=== PATIENT | female | born 1940 | race Caucasian/White ===

== ENCOUNTER 2016-12-16 05:23 | Observation (INO) | payer MEDICARE, OTHER ==
[2016-12-16] MEDS ORDERED: SODIUM CHLORIDE 0.9% 1,000 ML IV STA (05:31)
[2016-12-16 05:46] LABS: Basophils % (A) 1 %; CH 22.4; CHCM 30.3; Eosinophils # (A) 0.4 k/uL (0-0.7); Eosinophils % (A) 5 %; HCT 31.3 % (34.0-46.0); HDW 2.78; HGB 9.9 gm/dL (11.4-16.0); Hypochromasia Marked; Luc # (Auto) 0.17; Luc % (Auto) 2; Lymphocytes # (A) 1.4 k/uL (1.0-4.8); Lymphocytes % (A) 19 %; MCH 23.4 pg (25.0-35.0); MCHC 31.5 g/dL (31.0-37.0); MCV 74.3 fL (80.0-100.0); Mean Platelet Volume 7.8; Microcytosis Slight; Monocytes # (A) 0.4 k/uL (0-1.0); Monocytes % (A) 5 %; Neutrophils # (A) 5.1 k/uL (1.3-7.7); Neutrophils % (A) 68 %; RBC 4.22 m/uL (3.80-5.40); RDW 15.6 % (11.5-15.5); WBC 7.5 k/uL (3.8-10.6); WBC (Perox) 7.52
[2016-12-16 05:55] LABS: ALT 29 U/L (9-52); AST 14 U/L (14-36); Alkaline Phosphatase 78 U/L (38-126); Anion Gap 8 mmol/L; Blood Urea Nitrogen 13 mg/dL (7-17); Calcium 8.9 mg/dL (8.4-10.2); Carbon Dioxide 24 mmol/L (22-30); Chloride 106 mmol/L (98-107); Glucose 144 mg/dL (74-99); Magnesium 2.1 mg/dL (1.6-2.3); Non-African American GFR(MDRD) >60 (>60 ml/min/1.73 sqM); Partial Thromboplastin Time 22.7 sec (22.0-30.0); Potassium 4.2 mmol/L (3.5-5.1); Sodium 138 mmol/L (137-145); Total Bilirubin 0.2 mg/dL (0.2-1.3); Total Protein 5.6 g/dL (6.3-8.2)
[2016-12-16] MEDS ORDERED: NITROGLYCERIN SL TABS 0.4 MG TAB SUBLINGUAL PRN (06:05)
[2016-12-16] MEDS ORDERED: ASPIRIN 81 MG CHEW PO STA (06:05)
[2016-12-16 06:07] LABS: Creatine Kinase 64 U/L (30-135)
--- NOTE | 2016-12-16 06:11 | ED ---
General Adult HPI - General Chief complaint: Chest Pain Stated complaint: Chest Pain Time Seen by Provider: 12/16/16 05:31 Source: EMS, RN notes reviewed, old records reviewed Mode of arrival: EMS Limitations: no limitations - History of Present Illness Initial comments: This is a 68-year-old female ER chest pain. Chest pain shortness of breath, feeling of fullness in her chest and neck. Patient also complaining of cough. And just generally not feeling well. She states increased fatigue over the last day and a half. Decreased appetite. No significant medical history aside for mild Parkinson's, takes no medications at this time. No history of heart disease. Patient denies fever. No travel history no sick contacts. Patient continues a chest pain fatigue at this time - Related Data Home Medications Medication Instructions Recorded Confirmed Aspirin 81 mg PO DAILY 11/12/13 12/16/16 Primidone [Mysoline] 50 mg PO DAILY 11/12/13 12/16/16 Previous Rx's Medication Instructions Recorded Nitroglycerin Sl Tabs [Nitrostat] 0.4 mg SUBLINGUAL Q5M PRN #20 tab 12/17/16 amLODIPine [Norvasc] 5 mg PO DAILY #30 tab 12/17/16 Allergies Allergy/AdvReac Type Severity Reaction Status Date / Time Penicillins Allergy Rash/Hives Verified 12/16/16 08:20 Review of Systems ROS Statement: Those systems with pertinent positive or pertinent negative responses have been documented in the HPI. ROS Other: All systems not noted in ROS Statement are negative. Past Medical History Past Medical History: Osteoarthritis (OA) Additional Past Medical History / Comment(s): parkinsons History of Any Multi-Drug Resistant Organisms: None Reported Past Surgical History: No Surgical Hx Reported Past Psychological History: Anxiety Smoking Status: Never smoker Past Alcohol Use History: None Reported Past Drug Use History: None Reported - Past Family History Mother Additional Family Medical History / Comment(s): pt states her mother needed a new heart, from a "bad" heart. Father was an alchoholic-per pt. Sister has heart problems and alzhiemers General Exam Limitations: no limitations General appearance: alert, in no apparent distress Head exam: Present: atraumatic, normocephalic, normal inspection Eye exam: Present: normal appearance, PERRL, EOMI. Absent: scleral icterus, conjunctival injection, periorbital swelling ENT exam: Present: normal exam, mucous membranes moist Neck exam: Present: normal inspection. Absent: tenderness, meningismus, lymphadenopathy Respiratory exam: Present: normal lung sounds bilaterally. Absent: respiratory distress, wheezes, rales, rhonchi, stridor Cardiovascular Exam: Present: regular rate, normal rhythm, normal heart sounds. Absent: systolic murmur, diastolic murmur, rubs, gallop, clicks GI/Abdominal exam: Present: soft, normal bowel sounds. Absent: distended, tenderness, guarding, rebound, rigid Extremities exam: Present: normal inspection, full ROM, normal capillary refill. Absent: tenderness, pedal edema, joint swelling, calf tenderness Back exam: Present: normal inspection Neurological exam: Present: alert, oriented X3, CN II-XII intact Psychiatric exam: Present: normal affect, normal mood Skin exam: Present: warm, dry, intact, normal color. Absent: rash Course Vital Signs 12/16/16 12/16/16 05:25 06:50 Temperature 98.4 F Pulse Rate 89 64 Respiratory 18 16 Rate Blood Pressure 169/80 149/68 O2 Sat by Pulse 100 100 Oximetry - Reevaluation(s) Reevaluation #1: 12/16/16 06:10 Patient remains unchanged EKG Findings - EKG Comments: EKG Findings:: EKG shows normal sinus rhythm rate of 75, NM 160, QRS 86, QTC 417. Repeat. EKG shows normal sinus rhythm rate of 65, NM 144, QRS 86, QTC 409 Medical Decision Making - Medical Decision Making 76 female in the ER for evaluation of chest pain, history of chest pain. Patient's poor strain, patient be admitted for cardiac observation - Lab Data Result diagrams: 12/17/16 06:42 12/17/16 06:42 Lab Results 12/16/16 12/16/16 12/16/16 Range/Units 05:30 05:30 05:30 WBC 7.5 (3.8-10.6) k/uL RBC 4.22 (3.80-5.40) m/uL Hgb 9.9 L (11.4-16.0) gm/dL Hct 31.3 L (34.0-46.0) % MCV 74.3 L (80.0-100.0) fL MCH 23.4 L (25.0-35.0) pg MCHC 31.5 (31.0-37.0) g/dL RDW 15.6 H (11.5-15.5) % Plt Count 278 (150-450) k/uL Neutrophils % 68 % Lymphocytes % 19 % Monocytes % 5 % Eosinophils % 5 % Basophils % 1 % Neutrophils # 5.1 (1.3-7.7) k/uL Lymphocytes # 1.4 (1.0-4.8) k/uL Monocytes # 0.4 (0-1.0) k/uL Eosinophils # 0.4 (0-0.7) k/uL Basophils # 0.0 (0-0.2) k/uL Hypochromasia Marked Microcytosis Slight PT (9.0-12.0) sec INR (<1.1) APTT (22.0-30.0) sec Sodium 138 (137-145) mmol/L Potassium 4.2 (3.5-5.1) mmol/L Chloride 106 (98-107) mmol/L Carbon Dioxide 24 (22-30) mmol/L Anion Gap 8 mmol/L BUN 13 (7-17) mg/dL Creatinine 0.50 L (0.52-1.04) mg/dL Est GFR (MDRD) Af Amer >60 (>60 ml/min/1.73 sqM) Est GFR (MDRD) Non-Af >60 (>60 ml/min/1.73 sqM) Glucose 144 H (74-99) mg/dL Calcium 8.9 (8.4-10.2) mg/dL Magnesium 2.1 (1.6-2.3) mg/dL Total Bilirubin 0.2 (0.2-1.3) mg/dL AST 14 (14-36) U/L ALT 29 (9-52) U/L Alkaline Phosphatase 78 (38-126) U/L Total Creatine Kinase 64 (30-135) U/L CK-MB (CK-2) 1.0 (0.0-2.4) ng/mL CK-MB (CK-2) Rel Index 1.6 Troponin I <0.012 (0.000-0.034) ng/mL Total Protein 5.6 L (6.3-8.2) g/dL Albumin 3.4 L (3.5-5.0) g/dL Lipase 112 (23-300) U/L 12/16/16 Range/Units 05:30 WBC (3.8-10.6) k/uL RBC (3.80-5.40) m/uL Hgb (11.4-16.0) gm/dL Hct (34.0-46.0) % MCV (80.0-100.0) fL MCH (25.0-35.0) pg MCHC (31.0-37.0) g/dL RDW (11.5-15.5) % Plt Count (150-450) k/uL Neutrophils % % Lymphocytes % % Monocytes % % Eosinophils % % Basophils % % Neutrophils # (1.3-7.7) k/uL Lymphocytes # (1.0-4.8) k/uL Monocytes # (0-1.0) k/uL Eosinophils # (0-0.7) k/uL Basophils # (0-0.2) k/uL Hypochromasia Microcytosis PT 10.0 (9.0-12.0) sec INR 1.0 (<1.1) APTT 22.7 (22.0-30.0) sec Sodium (137-145) mmol/L Potassium (3.5-5.1) mmol/L Chloride (98-107) mmol/L Carbon Dioxide (22-30) mmol/L Anion Gap mmol/L BUN (7-17) mg/dL Creatinine (0.52-1.04) mg/dL Est GFR (MDRD) Af Amer (>60 ml/min/1.73 sqM) Est GFR (MDRD) Non-Af (>60 ml/min/1.73 sqM) Glucose (74-99) mg/dL Calcium (8.4-10.2) mg/dL Magnesium (1.6-2.3) mg/dL Total Bilirubin (0.2-1.3) mg/dL AST (14-36) U/L ALT (9-52) U/L Alkaline Phosphatase (38-126) U/L Total Creatine Kinase (30-135) U/L CK-MB (CK-2) (0.0-2.4) ng/mL CK-MB (CK-2) Rel Index Troponin I (0.000-0.034) ng/mL Total Protein (6.3-8.2) g/dL Albumin (3.5-5.0) g/dL Lipase (23-300) U/L - Radiology Data Radiology results: report reviewed (Chest x-ray is negative for acute disease), image reviewed Critical Care Time Critical Care Time: Yes Total Critical Care Time: 31 Disposition Clinical Impression: Chest pain Disposition: ADMITTED IP TO THIS [facility] Condition: Stable
[2016-12-16 06:20] LABS: Troponin I <0.012 ng/mL (0.000-0.034)
--- NOTE | 2016-12-16 06:20 | XR ---
EXAM: XR Chest, 2 Views CLINICAL HISTORY: Chest Pain TECHNIQUE: Frontal and lateral views of the chest. COMPARISON: No relevant prior studies available. FINDINGS: Lungs: Unremarkable. No consolidation. Pleural space: Unremarkable. No pneumothorax. Heart: Unremarkable. No cardiomegaly. Mediastinum: Unremarkable. Bones/joints: Unremarkable. IMPRESSION: No acute findings
[2016-12-16] MEDS: IPRATROPIUM-ALBUTEROL 3 ML NEB INHALATION SCH ×3 (11:28→19:58)
[2016-12-16 12:15] LABS: Creatine Kinase 57 U/L (30-135)
[2016-12-16 12:28] LABS: Creatine Kinase MB 0.8 ng/mL (0.0-2.4); Troponin I <0.012 ng/mL (0.000-0.034)
--- NOTE | 2016-12-16 16:03 | P.HPIM ---
History of Present Illness H&P Date: 12/16/16 Chief Complaint: Chest pain This is a 76-year-old patient of Dr. Ho. Not the best of historians as she keeps drifting off.. Chronic stable medical conditions include Parkinson's disease, osteoarthritis,. Patient presents with episodes of anterior chest wall pain associated with dizziness, increased blood pressure, some shortness of breath, episodes of perspiration perspiration, lasting very variable durations including up to 20 minutes. Denies any prior cardiac history. Admitted with unstable angina. Normally uses a walker to get around the house. Review of Systems GEN.: tired EYES: None HEENT: Decreased hearing NECK: None RESPIRATORY: As above CARDIOVASCULAR: As above GASTROINTESTINAL: None GENITOURINARY: None MUSCULOSKELETAL: Pain in different joints including the feet LYMPHATICS: None HEMATOLOGICAL: None PSYCHIATRY: Somewhat anxious NEUROLOGICAL: Uses a walker Past Medical History Past Medical History: Osteoarthritis (OA) Additional Past Medical History / Comment(s): parkinsons History of Any Multi-Drug Resistant Organisms: None Reported Past Surgical History: No Surgical Hx Reported Smoking Status: Never smoker Additional History: Lives alone. Uses a walker - Past Family History Mother Additional Family Medical History / Comment(s): pt states her mother needed a new heart, from a "bad" heart. Father was an alchoholic-per pt. Sister has heart problems and alzhiemers Medications and Allergies Home Medications Medication Instructions Recorded Confirmed Type Aspirin 81 mg PO DAILY 11/12/13 12/16/16 History Primidone [Mysoline] 50 mg PO DAILY 11/12/13 12/16/16 History Allergies Allergy/AdvReac Type Severity Reaction Status Date / Time Penicillins Allergy Rash/Hives Verified 12/16/16 08:20 Physical Exam VITAL SIGNS: Upon presentation temperature 98.4, pulse 89, respiration 18, pressure 169/80, also 100% on 2 L GENERAL: Average built, laying in bed, comfortable. EYES: Pupils equal. Conjunctiva normal. HEENT: External appearance of nose and ears normal, oral cavity grossly normal decreased hearing. NECK: JVD not raised; masses not palpable. HEART: First and second heart sounds are normal; no edema. LUNGS: Respiratory rate normal; clear to auscultation. ABDOMEN: Soft, nontender, liver spleen not palpable, no masses palpable. LYMPHATICS: No lymph nodes palpable in the axilla and neck. PSYCH: Alert and oriented x3; mood and affect normal. NEUROLOGICAL: Cranial nerves grossly intact; no facial asymmetry, power and sensation grossly intact. Somewhat restless and fidgety Results CBC & Chem 7: 12/16/16 05:30 12/16/16 05:30 Labs: White count 7.5, hemoglobin 9.9, potassium 4.2, troponin I 2 negative EKG-nonspecific changes Thrombosis Risk Factor Assmnt - Choose All That Apply Any of the Below Risk Factors Present?: No Assessment and Plan Plan: Assessment: -Possible unstable angina in a patient who is 76 years of age also history of hypertension but states she's been out of her medications -Parkinson's disease idiopathic, mild -Bilateral primary osteoarthritis especially of the the feet Plan: Serial cardiac enzymes are ordered. Cardiology was consulted. They are considering the stress test. Care was discussed with the patient. Patient's started on put on aspirin.
[2016-12-16 18:17] LABS: Creatine Kinase MB 0.8 ng/mL (0.0-2.4); Troponin I 0.015 ng/mL (0.000-0.034)
[2016-12-16] MEDS: PRIMIDONE 50 MG TAB PO SCH (21:52)
[2016-12-16] MEDS: ASPIRIN 81 MG CHEW PO SCH (21:52)
[2016-12-17] MEDS ORDERED: IPRATROPIUM-ALBUTEROL 3 ML NEB ONE (00:22)
[2016-12-17 04:21] VITALS: RESP 16
[2016-12-17] MEDS: IPRATROPIUM-ALBUTEROL 3 ML NEB INHALATION SCH ×5 (05:13→12:31)
[2016-12-17] MEDS ORDERED: DOBUTamine DRIP for NUC MED 500 MG in DEXTROSE/WATER 1 250ML.BAG IV ONE (06:00)
[2016-12-17 07:27] LABS: CH 21.8; HCT 27.9 % (34.0-46.0); HDW 2.68; HGB 8.5 gm/dL (11.4-16.0); Hypochromasia Marked; MCH 23.2 pg (25.0-35.0); MCHC 30.7 g/dL (31.0-37.0); MCV 75.5 fL (80.0-100.0); Mean Platelet Volume 7.5; Microcytosis Slight; RBC 3.69 m/uL (3.80-5.40); RDW 15.4 % (11.5-15.5); WBC 7.2 k/uL (3.8-10.6)
[2016-12-17 08:02] LABS: Anion Gap 7 mmol/L; Blood Urea Nitrogen 10 mg/dL (7-17); Calcium 8.1 mg/dL (8.4-10.2); Carbon Dioxide 22 mmol/L (22-30); Chloride 107 mmol/L (98-107); Cholesterol 132 mg/dL (<200); Glucose 108 mg/dL (74-99); HDL Cholesterol 54 mg/dL (40-60); Non-African American GFR(MDRD) >60 (>60 ml/min/1.73 sqM); Sodium 136 mmol/L (137-145); Triglycerides 44 mg/dL (<150)
[2016-12-17] MEDS ORDERED: ASPIRIN 81 MG CHEW PO SCH (09:00)
[2016-12-17] MEDS ORDERED: ASPIRIN 325 MG TAB PO SCH (09:00)
--- NOTE | 2016-12-17 10:30 | ECHOF ---
Referral Reason: MEASUREMENTS -------- HEIGHT: 162.6 cm WEIGHT: 65.3 kg BP: 114/20 RVIDd: 2.6 cm (< 3.3) IVSd: 1.2 cm (0.6 - 1.1) LVIDd: 3.7 cm (3.9 - 5.3) LVPWd: 1.2 cm (0.6 - 1.1) IVSs: 1.5 cm LVIDs: 2.7 cm LVPWs: 1.4 cm LA Diam: 3.4 cm (2.7 - 3.8) LAESV Index (A-L): 46.76 ml/m Ao Diam: 3.4 cm (2.0 - 3.7) AV Cusp: 2.3 cm (1.5 - 2.6) LA Diam: 4.4 cm (2.7 - 3.8) MV EXCURSION: 22.213 mm (> 18.000) MV EF SLOPE: 77 mm/s (70 - 150) EPSS: 0.6 cm MV E Tyshawn: 0.72 m/s MV DecT: 217 ms MV A Tyshawn: 1.00 m/s MV E/A Ratio: 0.72 RAP: 5.00 mmHg RVSP: 34.57 mmHg FINDINGS -------- Sinus rhythm. This was a technically adequate study. The left ventricular size is normal. There is mild concentric left ventricular hypertrophy. Overall left ventricular systolic function is normal with, an EF between 55 - 60 %. The right ventricle is normal in size. LA is severely dilated >40 ml/m2 The right atrial size is normal. There is mild aortic valve sclerosis. There is no evidence of aortic regurgitation. Mild mitral annular calcification present. Mild mitral regurgitation is present. Eelo-nf-xofypsrg tricuspid regurgitation present. There is no evidence of pulmonary hypertension. The right ventricular systolic pressure, as measured by Doppler, is 34.57mmHg. The pulmonic valve was not well visualized. There is no pulmonic regurgitation present. The aortic root size is normal. There is no pericardial effusion. CONCLUSIONS -------- 1. This was a technically adequate study. 2. The aortic root size is normal. 3. There is no pericardial effusion. 4. There is mild concentric left ventricular hypertrophy. 5. LA is severely dilated >40 ml/m2 6. There is mild aortic valve sclerosis. 7. Mild mitral annular calcification present. 8. Mild mitral regurgitation is present. 9. Lazl-ik-yapjmjew tricuspid regurgitation present. 10. There is no evidence of pulmonary hypertension. 11. There is no pulmonic regurgitation present. DAIRY EQUIPMENT REPAIRER: Abiola Childress RDCS
[2016-12-17 11:26] VITALS: BP 145/56; PULSE 84; TEMP 98.2
--- NOTE | 2016-12-17 11:55 | P.STRESS ---
- Stress Test Note Stress Test Results/Findings: Exam Performed: dobutamine stress echo Exam Date: 12/17/16 Height: 5 ft 4 in Weight: 65.5 kg Protocol: Shekhar Stage: IV Duration of Exercise: 10 Resting Heart Rate: 78 Resting Blood Pressure: 218/60 Maximum Achieved Heart Rate: 125 Maximum Achieved Blood Pressure: 210/62 85% PMHR: 88 100% PMHR: 142 METS: 0 Technologist Comment: Stress Test Results/Findings: Baseline EKG revealed sinus mechanism with normal axis and intervals. Patient received an infusion of dobutamine per protocol. EKG monitoring revealed no evidence of ST segment changes. Baseline echocardiogram revealed normal wall thickening and motion and at peak exercise there was normal wall motion augmentations with no hypokinesis or dyskinesis. Impression: 1. Normal EKG response to dobutamine infusion. 2. Normal stress echocardiogram with no evidence of stress induced ischemia.
[2016-12-17 11:56] VITALS: BMI 24.7
[2016-12-17] MEDS: PRIMIDONE 50 MG TAB PO SCH (12:10)
[2016-12-17] MEDS: ASPIRIN 81 MG CHEW PO SCH (12:10)
--- NOTE | 2016-12-17 15:15 | CONS ---
Attending: Dr. Ho. Mrs. Owens is a 76 year old female with no prior documented history of coronary artery disease who presented with symptoms of chest discomfort and dizziness. According to her, she has been having chest discomfort, worse with coughing. She also complained of dizziness and not feeling well. She denies any prior cardiac history. She has no documented history of syncope in the past but she felt dizzy and felt according to her like swimming. She has no peripheral edema. No clear PND. She sleeps on three pillows. Her coronary risk factors are negative for smoking. She is nondiabetic. No documented hyperlipidemia. According to her, she has high blood pressure at times. Her medications at home included: 1. Mysoline. 2. Aspirin. REVIEW OF SYSTEMS: She has a cough. She has some dyspnea on exertion. No history of obstructive lung disease. She has history of asthma. GI system: No recent GI bleeding or peptic ulcer disease. system: No dysuria or hematuria. Nervous system: No stroke or seizures. PHYSICAL EXAMINATION: Alert, in no apparent distress. Blood pressure 149/60 with a heart rate in the 60s, head normocephalic, eyes sclerae nonicteric. Neck good carotid upstroke. No bruit. No jugular venous distention. Lungs clear to auscultation. Heart regular rate and rhythm, S1, S2. No S3 with reproducible discomfort in the chest by palpation. Abdomen soft, nontender. Positive bowel sounds. No organomegaly. Extremities no edema. Intact distal pulses. Lab data revealed blood sugar 114, BUN and creatinine 13 and 0.5 Troponin less than 0.012. Hemoglobin 9.9. EKG revealed a sinus mechanism with a normal axis and intervals with suggestion of left ventricular hypertrophy. Chest x-ray reveals no infiltrate. IMPRESSION: 1. Chest discomfort, atypical for ischemic heart disease. No evidence for acute coronary syndrome. Has apparent musculoskeletal etiology. 2. Cough with no clear evidence to suggest pneumonia. 3. Anemia, of unknown duration or unknown etiology. RECOMMENDATIONS: From the cardiac standpoint, I will obtain echocardiogram and Doppler. We will schedule to undergo dobutamine stress echocardiogram. We will repeat her lab data. Depending on her progress, further recommendations will be made. Thank you for this consultation. REHANA
--- NOTE | 2016-12-17 19:21 | P.DS ---
<Lulu Kim - Last Filed: 12/17/16 19:06> Providers Date of admission: 12/16/16 06:06 Expected date of discharge: 12/17/16 Attending physician: Shady Díaz Consults: 12/16/16 06:06 Consult Physician Urgent Consulting Provider: Barrett Liu Consult Reason/Comments: cp Do you want consulting provider notified?: Yes Primary care physician: [facility] Hospital Course: FINAL DIAGNOSES: -Unstable angina -Hypertension -Parkinson's disease, idiopathic, mild -Bilateral primary osteoarthritis, especially of the feet. HOSPTIAL COURSE: This is a 76-year-old patient who presented to the emergency department with episodes of anterior chest wall pain associated with dizziness increasing blood pressure and some shortness of breath, episodes of perspiration lasting variable durations up to 20 minutes. No prior cardiac history, was admitted with unstable angina. Cardiology was consulted, lab work was drawn ECG was performed. Patient went for stress test today and EKG response to dobutamine infusion was normal as was normal stress echo no evidence of inducible ischemia. Patient's tolerating her diet ambulatory with a walker, which is her baseline, and would therefore like to go home. PHYSICAL EXAM: CARDIOVASCULAR: First and second sounds noted, no edema, no chest pain, palpitations or sweating, nausea or vomiting. RESPIRATORY: Respiratory rate normal: Clear to auscultation. MUSKULOSKELETAL: Osteoarthritis notable to bilateral feet, patient uses a walker at baseline. NEUROLOGIC:: Mild restlessness and fidgeting noted, mild tremoring the left hand. Patient was seen and examined by nurse practitioner Lulu Kim in all elements of the case discussed with attending Dr. Díaz DISOPSITION: Will be discharged home to the care of her family Pertinent Studies: STRESS TEST: Normal EKG response to dobutamine infusion, normal stress echocardiogram with no evidence of stress-induced ischemia. Patient Condition at Discharge: Stable Plan - Discharge Summary New Discharge Prescriptions: New Nitroglycerin Sl Tabs [Nitrostat] 0.4 mg SUBLINGUAL Q5M PRN #20 tab PRN Reason: Chest Pain amLODIPine [Norvasc] 5 mg PO DAILY #30 tab Continue Primidone [Mysoline] 50 mg PO DAILY Aspirin 81 mg PO DAILY Discharge Medication List Aspirin 81 mg PO DAILY 11/12/13 [History] Primidone [Mysoline] 50 mg PO DAILY 11/12/13 [History] Nitroglycerin Sl Tabs [Nitrostat] 0.4 mg SUBLINGUAL Q5M PRN #20 tab 12/17/16 [Rx ] amLODIPine [Norvasc] 5 mg PO DAILY #30 tab 12/17/16 [Rx] Follow up Appointment(s)/Referral(s): Serjio Killian MD [STAFF PHYSICIAN] - 10 Days Robert Ho DO [Primary Care Provider] - 1-2 days Patient Instructions/Handouts: Chest Pain (ED) Discharge Disposition: HOME SELF-CARE <Shady Díaz - Last Filed: 12/18/16 17:54> Hospital Course: Attending note. Date of service-12/17/2016 This patient was seen and examined by me . I reviewed the note of my nurse practitioner, Ms. Kim. Discussed with her, additional findings as below. Patient admitted with chest pain. Troponins were negative. On examination: Lungs-clear to auscultation, cardiovascular first seconds are normal Investigations: 2-D echo showed preserved LV function. Stress test was negative Assessment and plan: Possible unstable angina with a negative stress test Norvasc was added both for blood pressure control and for possible angina. care was discussed with the patient
== END 2016-12-17 17:16 | disposition home or self-care (01) ==
LOC: EC 05:23 → 3OBS 06:06
PROVIDERS: ADMIT Hospitalist; ATTEND Hospitalist
DX: I20.0 Unstable angina (principal); G20 Parkinson's disease; I10 Essential (primary) hypertension; M19.072 Primary osteoarthritis, left ankle and foot; M19.071 Primary osteoarthritis, right ankle and foot; F41.9 Anxiety disorder, unspecified; D64.9 Anemia, unspecified; Z79.899 Other long term (current) drug therapy; Z79.82 Long term (current) use of aspirin; Z88.0 Allergy status to penicillin; Z82.49 Family history of ischemic heart disease and other diseases of the circulatory system
CPT/HCPCS: 99291 ×2; 93005 ×2; 36415; 94640 ×4; 94760; 93017; 93306; 93350; 80061; 80053; 80048; 82550; 82553; 83690; 83735; 84484; 85025; 85027; 85610; 85730; 71020; G0378 ×2; J1250

== ENCOUNTER 2020-03-09 16:19 | Inpatient (IN) | payer MEDICARE, OTHER ==
--- NOTE | 2020-03-09 17:00 | ED ---
Weakness HPI - General Chief complaint: Weakness Stated complaint: draft roller picker order Time Seen by Provider: 03/09/20 16:26 Source: EMS, RN notes reviewed, old records reviewed Mode of arrival: EMS Limitations: altered mental status - History of Present Illness Initial comments: This is a 79-year-old female poor historian history obtained from EMS and danica quintero'nicolasa prior charting, patient pickup order secondary to unkempt and unfit living conditions MD Complaint: generalized weakness, lack of energy, difficulty walking -: days(s) Location: generalized Severity: moderate Severity scale (1-10): 4 Consistency: constant Improves with: none Worsens with: none Context: recent illness Associated Symptoms: confusion, loss of appetite, nausea/vomiting - Related Data Home Medications Medication Instructions Recorded Confirmed Aspirin 81 mg PO DAILY 11/12/13 12/16/16 Primidone [Mysoline] 50 mg PO DAILY 11/12/13 12/16/16 Previous Rx's Medication Instructions Recorded Nitroglycerin Sl Tabs [Nitrostat] 0.4 mg SUBLINGUAL Q5M PRN #20 tab 12/17/16 amLODIPine [Norvasc] 5 mg PO DAILY #30 tab 12/17/16 Allergies Allergy/AdvReac Type Severity Reaction Status Date / Time Penicillins Allergy Rash/Hives Verified 03/09/20 16:42 Review of Systems ROS Statement: Those systems with pertinent positive or pertinent negative responses have been documented in the HPI. ROS Other: All systems not noted in ROS Statement are negative. Past Medical History Past Medical History: Osteoarthritis (OA) Additional Past Medical History / Comment(s): parkinsons History of Any Multi-Drug Resistant Organisms: None Reported Past Surgical History: No Surgical Hx Reported Past Psychological History: Anxiety Smoking Status: Never smoker Past Alcohol Use History: None Reported Past Drug Use History: None Reported - Past Family History Mother Additional Family Medical History / Comment(s): pt states her mother needed a new heart, from a "bad" heart. Father was an alchoholic-per pt. Sister has heart problems and alzhiemers General Exam Limitations: altered mental status Course Vital Signs 03/09/20 03/09/20 03/09/20 16:30 17:42 18:00 Temperature 99.0 F Pulse Rate 129 H 128 H 128 H Respiratory 30 H 18 18 Rate Blood Pressure 142/94 124/88 124/88 O2 Sat by Pulse 98 100 100 Oximetry - Reevaluation(s) Reevaluation #1: 03/09/20 18:39 Medical record is reviewed Reevaluation #2: 03/09/20 18:39 No significant change in patient's symptoms EKG Findings - EKG Comments: EKG Findings:: EKG shows sinus tachycardia 127 TX 122 QRS 82 QTC 453 Medical Decision Making - Medical Decision Making 79 female DF for evaluation of altered mental status and weakness. Patient will admit for admission of all the above - Lab Data Result diagrams: 03/09/20 17:25 Lab Results 03/09/20 03/09/20 Range/Units 17:25 17:25 Sodium 147 H (137-145) mmol/L Potassium 4.0 (3.5-5.1) mmol/L Chloride 114 H (98-107) mmol/L Carbon Dioxide 21 L (22-30) mmol/L Anion Gap 12 mmol/L BUN 45 H (7-17) mg/dL Creatinine 0.96 (0.52-1.04) mg/dL Est GFR (CKD-EPI)AfAm 64 (>60 ml/min/1.73 sqM) Est GFR (CKD-EPI)NonAf 56 (>60 ml/min/1.73 sqM) Glucose 146 H (74-99) mg/dL Calcium 7.9 L (8.4-10.2) mg/dL Phosphorus 5.3 H (2.5-4.5) mg/dL Magnesium 2.8 H (1.6-2.3) mg/dL Ammonia 45 H (<30) umol/L Salicylates <1.0 mg/dL Acetaminophen <10.0 ug/mL Serum Alcohol <10 mg/dL - Radiology Data Radiology results: report reviewed (X-ray abdominal series and chest is negative for acute disease), image reviewed Disposition Clinical Impression: Hypernatremia, Dehydration Disposition: ADMITTED IP TO THIS HOSP Condition: Fair Is patient prescribed a controlled substance at d/c from ED?: No Referrals: None,Stated [Primary Care Provider] - 1-2 days
[2020-03-09 18:00] LABS: Acetaminophen <10.0 ug/mL; African American GFR (CKD) 64 (>60 ml/min/1.73 sqM); Alcohol <10 mg/dL; Anion Gap 12 mmol/L; Blood Urea Nitrogen 45 mg/dL (7-17); Calcium 7.9 mg/dL (8.4-10.2); Carbon Dioxide 21 mmol/L (22-30); Chloride 114 mmol/L (98-107); Glucose 146 mg/dL (74-99); Magnesium 2.8 mg/dL (1.6-2.3); Non-African American GFR(CKD) 56 (>60 ml/min/1.73 sqM); Phosphorus 5.3 mg/dL (2.5-4.5); Salicylate <1.0 mg/dL; Sodium 147 mmol/L (137-145)
[2020-03-09] MEDS ORDERED: cefTRIAXone IN SWFI 1,000 MG/10 ML SYRINGE IVP STA (18:16)
[2020-03-09] MEDS ORDERED: SODIUM CHLORIDE 0.9% 500 ML 500 ML IV STA (18:41)
[2020-03-09] MEDS ORDERED: SODIUM CHLORIDE 0.9% 1,000 ML IV STA ×2 (18:41→20:59)
[2020-03-09] MEDS ORDERED: SODIUM CHLORIDE 0.9% 2,000 ML IV STA (18:41)
[2020-03-09 18:49] LABS: Anisocytosis Moderate; Basophils # (A) 0.1 k/uL (0-0.2); Basophils % (A) 0 %; Eosinophils % (A) 0 %; HCT 39.9 % (34.0-46.0); HGB 11.3 gm/dL (11.4-16.0); Hypochromasia Marked; Lymphocytes # (A) 1.5 k/uL (1.0-4.8); Lymphocytes % (A) 9 %; MCH 19.9 pg (25.0-35.0); MCHC 28.4 g/dL (31.0-37.0); MCV 70.1 fL (80.0-100.0); Mean Platelet Volume 8.3; Microcytosis Marked; Monocytes # (A) 0.9 k/uL (0-1.0); Monocytes % (A) 6 %; Neutrophils # (A) 13.2 k/uL (1.3-7.7); Neutrophils % (A) 83 %; Platelet Count 380 k/uL (150-450); RDW 20.1 % (11.5-15.5)
[2020-03-09 19:41] LABS: Amphetamine Screen,Urine Not Detected (NotDetected); Barbiturate Screen,Urine Not Detected (NotDetected); Benzodiazepines Screen,Urine Not Detected (NotDetected); Cocaine Screen,Urine Not Detected (NotDetected); Methadone Screen, Urine Not Detected (NotDetected); Opiate Screen,Urine Not Detected (NotDetected); Oxycodone Screen, Urine Not Detected (NotDetected); Phencyclidine Screen,Urine Not Detected (NotDetected); Tricyclic Antidepressant,Urine Not Detected (NotDetected); Urn Cannabinoid Scrn Not Detected (NotDetected)
[2020-03-09 19:55] LABS: Valproic Acid (Depakene) <10.0 ug/mL
--- NOTE | 2020-03-09 20:24 | XR ---
EXAMINATION TYPE: XR abdomen acute w cxr DATE OF EXAM: 03/09/2020 COMPARISON: NONE HISTORY: Weakness TECHNIQUE: 3 views FINDINGS: There is no heart failure nor confluent pneumonic infiltrate. There are no hilar masses. Th oracic aorta is atheromatous. There are chest leads. There are dilated multiple small bowel loops with air and fluid throughout the abdomen. There is no e vidence of free air. There is only small amount of large bowel gas seen. IMPRESSION: No active cardiopulmonary disease. Dilated small bowel suggestive of severe ileus or distal mechanical small bowel obstruction.
[2020-03-09] MEDS ORDERED: DEXTROSE 5%-0.45% NACL 1,000 ML IV ONE (20:59)
[2020-03-09] MEDS ORDERED: SODIUM CHLORIDE 0.9% 500 ML 500 ML IV ONE (21:42)
[2020-03-10] MEDS: DEXTROSE 5% IN WATER 1,000 ML IV SCH ×5 (08:30→19:15)
[2020-03-10 09:15] LABS: ABG Base Excess -5.2 mmol/L; ABG HCO3 18 mmol/L (21-25); ABG Oxygen Saturation 99.5 % (94-97); ABG PCO2 24 mmHg (35-45); ABG PH 7.49 (7.35-7.45); ABG PO2 170 mmHg (83-108); ABG TCO2 19 mmol/L (19-24); Allen Test Performed? Yes
[2020-03-10 09:50] LABS: Glucose,Whole Blood 257 mg/dL (75-99)
--- NOTE | 2020-03-10 09:54 | P.CNPUL ---
History of Present Illness Consult date: 03/10/20 Requesting physician: Shari Young Reason for consult: other (Critical care management) Chief complaint: Abdominal pain, weakness History of present illness: This is an 79-year-old female patient with a history of Parkinson's disease and osteoarthritis. She is currently on no known home medications. He was brought into the emergency room yesterday by EMS with altered mental status. She is a poor historian and not much history could be taken from the patient. EMS reported on An unfit living conditions. She was having complaints of abdominal pain. Abdominal x-ray did reveal dilated small bowel suggestive of severe ileus or distal mechanical small bowel obstruction. Chest x-ray revealed no acute pulmonary process. EKG revealed sinus tachycardia with no significant ST or T wave abnormalities. White count 16.0. Hemoglobin 11.3. Sodium 147. Potassium 4.0. Chloride 114. Bicarb 21. Creatinine 0.96. Urine drug screen negative. Ammonia level 45. She was given 4 L of fluid resuscitation in the emergency room along with 1 g of IV Rocephin. She was admitted to the regular medical floor. This morning and A team was called as the patient was quite obtunded, hypotensive and tachycardic. She was transferred to the intensive care unit and seen upon arrival. She is moaning in pain. Abdomen is significantly distended and tender. Blood pressure 80/56. Tachycardic at 120. Requiring 6 L high flow nasal cannula to maintain O2 saturations in the 90s. Her blood gases revealed a PaO2 of 170, pCO2 24, pH 7.49. On 100% FiO2. She is receiving another liter of normal saline. This is changed to D5W. Review of Systems ROS unobtainable: due to mental status Past Medical History Past Medical History: Osteoarthritis (OA) Additional Past Medical History / Comment(s): parkinsons History of Any Multi-Drug Resistant Organisms: None Reported Past Surgical History: No Surgical Hx Reported Past Anesthesia/Blood Transfusion Reactions: No Reported Reaction Past Psychological History: Anxiety Smoking Status: Never smoker Past Alcohol Use History: None Reported Past Drug Use History: None Reported - Past Family History Mother Additional Family Medical History / Comment(s): pt states her mother needed a new heart, from a "bad" heart. Father was an alchoholic-per pt. Sister has heart problems and alzhiemers Medications and Allergies Home Medications Medication Instructions Recorded Confirmed Type No Known Home Medications 03/09/20 03/09/20 History Allergies Allergy/AdvReac Type Severity Reaction Status Date / Time Penicillins Allergy Rash/Hives Verified 03/09/20 18:56 Physical Exam Vitals: Vital Signs Temp Pulse Pulse Resp BP BP Pulse Ox 03/10/20 07:00 97.6 F 120 H 20 80/56 03/09/20 22:40 99.2 F 105 H 18 127/76 96 03/09/20 22:30 97.9 F 109 H 147/79 94 L 03/09/20 21:45 108 H 16 120/70 99 03/09/20 21:00 105 H 14 03/09/20 19:01 122 H 18 114/82 100 03/09/20 18:00 128 H 18 124/88 100 03/09/20 17:42 128 H 18 124/88 100 03/09/20 16:30 99.0 F 129 H 30 H 142/94 98 Intake and Output 03/09/20 03/10/20 03/10/20 22:59 06:59 14:59 Output Total 150 Balance -150 Output: Urine 150 Straight 150 Other: Voiding Method Diaper Incontinent # Voids 1 # Emeses 2 Weight 40.823 kg GENERAL EXAM: Obtunded, on 6 L high flow nasal cannula, frail, cachectic 79-year-old female patient. HEAD: Normocephalic. EYES: Normal reaction of pupils, equal size. NOSE: Clear with pink turbinates. THROAT: No erythema or exudates. NECK: No masses, no JVD. CHEST: No chest wall deformity. LUNGS: Equal air entry with no crackles, wheeze, rhonchi or dullness. CVS: S1 and S2 normal with no audible murmur, regular rhythm. Tachycardic. ABDOMEN: Significantly distended and tender, hypoactive bowel sounds positive guarding. SPINE: No scoliosis or deformity SKIN: No rashes CENTRAL NERVOUS SYSTEM: No focal deficits, tone is normal in all 4 extremities. EXTREMITIES: There is no peripheral edema. No clubbing, no cyanosis. Peripheral pulses are intact. Results - Laboratory Findings CBC and BMP: 03/09/20 18:22 03/09/20 17:25 Abnormal lab findings: Abnormal Labs 03/09/20 03/09/20 03/09/20 17:25 17:25 18:22 WBC 16.0 H RBC 5.70 H Hgb 11.3 L MCV 70.1 L MCH 19.9 L MCHC 28.4 L RDW 20.1 H Neutrophils # 13.2 H Sodium 147 H Chloride 114 H Carbon Dioxide 21 L BUN 45 H Glucose 146 H Calcium 7.9 L Phosphorus 5.3 H Magnesium 2.8 H Ammonia 45 H - Diagnostic Findings Chest x-ray: image reviewed (No acute pulmonary process) Additional studies: Abdominal x-ray revealed dilated small bowel suggestive of severe ileus or distal mechanical small bowel obstruction Assessment and Plan Assessment: 1 Altered mental status of unclear etiology 2 Abdominal pain secondary to severe ileus or possible distal small bowel mechanical obstruction 3 Leukocytosis secondary to above 4 Acute hypoxemic respiratory failure secondary to above 5 History of Parkinson's disease 6 Osteoarthritis Plan: The patient was seen and evaluated by Dr. Garcia Chest x-ray, abdominal x-ray, labs and ABGs reviewed Insert nasogastric tube Insert Garcia catheter Obtain surgical consultation Change IVs to D5.45 at 80 MLS per hour Titrate down the FiO2 as tolerated Overall condition is guarded We will continue to follow and make further recommendations based on her cl inical status I, the cosigning physician, performed a history & physical examination of the patient. Lungs sounds are clear. Maintaining good O2 saturations in the 90s on 6 L high flow nasal cannula. I discussed the assessment and plan of care with my nurse practitioner, Priya Bustamante. I attest to the above consultation as dictated by her. Time with Patient: Greater than 30
[2020-03-10] MEDS ORDERED: DEXTROSE 5% IN WATER 1,000 ML IV ONE (10:00)
[2020-03-10] MEDS: SODIUM CHLORIDE 0.9% 1,000 ML IV SCH ×2 (10:24→10:27)
[2020-03-10] MEDS ORDERED: LEVOFLOXACIN 500MG-D5W PMX 500 MG in DEXTROSE/WATER 1 100ML.BAG IVPB ONE (10:30)
[2020-03-10 10:35] VITALS: BMI 15.4
--- NOTE | 2020-03-10 10:39 | XR ---
EXAMINATION TYPE: XR chest 1V DATE OF EXAM: 03/10/2020 COMPARISON: 12/16/2016 HISTORY: NG tube placement TECHNIQUE: Single frontal view of the chest is obtained. FINDINGS: NG tube is seen with the tip in the left upper quadrant likely within the gastric fundus. Numerous dilated small bowel loops are seen in the abdomen. Hyperinflation of the lungs. Diffuse oste openia. Heart size normal. No pneumothorax. No overt failure. No sizable consolidation. IMPRESSION: 1. COPD. NG tube appears in the left upper quadrant with numerous dilated small bowel loops suggestiv e of bowel obstruction.
[2020-03-10 11:23] LABS: Anisocytosis Moderate; HCT 37.6 % (34.0-46.0); HGB 10.4 gm/dL (11.4-16.0); Hypochromasia Marked; MCHC 27.7 g/dL (31.0-37.0); MCV 72.1 fL (80.0-100.0); Mean Platelet Volume 9.2; Microcytosis Marked; Platelet Count 387 k/uL (150-450); RBC 5.21 m/uL (3.80-5.40); RDW 20.1 % (11.5-15.5); WBC 2.8 k/uL (3.8-10.6)
[2020-03-10 11:51] LABS: Albumin 1.8 g/dL (3.5-5.0); Calcium 6.5 mg/dL (8.4-10.2); Potassium 3.6 mmol/L (3.5-5.1); Total Bilirubin 0.8 mg/dL (0.2-1.3); Total Protein 3.6 g/dL (6.3-8.2)
--- NOTE | 2020-03-10 12:10 | CT ---
EXAMINATION TYPE: CT abdomen pelvis wo con DATE OF EXAM: 03/10/2020 COMPARISON: None INDICATION: Abdominal pain; small bowel obstruction on x-ray DLP: 385.1 mGycm, Automated exposure control for dose reduction was used. CONTRAST: 0 mL of Isovue 300. Study performed without Oral Contrast TECHNIQUE: Axial images were obtained from above the diaphragm to the pubic rami in the axial plane a t 5 mm thick sections. Reconstructed images are reviewed on the computer in the coronal plane. FINDINGS: Limited CT sections are obtained the lung bases. Small bilateral pleural effusions are present. Ther e is a small hiatal hernia present. Nasogastric tube has its tip within the stomach. CT ABDOMEN: Liver: There is moderate fatty infiltration the liver. Spleen: Normal Pancreas: Normal Adrenal glands: The adrenal glands are normal. Gallbladder: Normal Kidneys: No masses are evident. No hydronephrosis is present. Peripelvic cyst may be present. Stud y is without contrast. No obstructing renal or ureteral stones are evident. Aorta: Vascular calcification is within the aorta. Inferior vena cava: Normal. CT PELVIS: There are multiple dilated fluid-filled loops of small bowel. These extend to the pelvis. Scattered d iverticuli are within the decompressed colon. Small bowel dilatation extends to the terminal ileum. O bstructing etiology is not identified. Appendix: Normal as visualized. Urinary bladder: Garcia catheter decompresses the urinary bladder. Genitourinary structures: Uterus appears normal. Adnexal regions are normal. Small amount of free flu id may be present. Osseous structures: No suspicious lytic or sclerotic lesions. IMPRESSIONS: 1. Findings compatible with high-grade small bowel obstruction likely to the terminal ileum. A Red level critical message alert has been initiated for Trell Garcia via the [employer] on 03/10/2020 12:07 PM. This message alert has been sent to Trell Garcia via [employer] preferences provided by the clinician for the receipt of Radiology Critical Findings. Message ID [id number].
[2020-03-10] MEDS ORDERED: LACTATED RINGERS 1,000 ML IV SCH ×2 (12:15→16:15)
[2020-03-10 12:28] LABS: Band Neutrophils % 22 %; Lymphocytes # (M) 0.34 k/uL (1.0-4.8); Metamyelocytes # (M) 0.14 k/uL (0); Metamyelocytes % 5 %; Monocytes # (M) 0.14 k/uL (0-1.0); Myelocytes # (M) 0.03 k/uL (0); Myelocytes % 1 %; Neutrophils % (M) 56 %; Nucleated Red Blood Cells 0 /100 WBC (0-0); Poikilocytosis (M) Present; Total Cells Counted 200; Toxic Granulation Present
[2020-03-10 12:29] LABS: Crenated RBC Present
[2020-03-10] MEDS: LACTATED RINGERS 1,000 ML IV SCH ×5 (12:56→19:24)
--- NOTE | 2020-03-10 13:01 | P.HPIM ---
History of Present Illness This is an 79 years old female who was admitted for bowel obstruction. I got a call early this morning by the bedside nurse the patient is hypotensive , her blood pressure 60s/30s, down from 80s/40s. I gave an order to give to giv e 2 L of normal saline and to contact the surgeon construction carpenters helper and to send the patient to the ICU with critical care team consult. Shortly thereafter I went to see the patient she was in the ICU she was confused and she could not provide information she was in mild distress due to pain. Patient could not provide information so it was taken from the staff and medical records, it looks like patient has history of osteoarthritis, Parkinson disease and anxiety. Patient was admitted last night, acute abdominal series showing dilated small bowel suggestive of severe ileus or distal mechanical small bowel obstruction. EKG shows sinus tachycardia at 127. Admission labs showed leukocytosis of 16 K, hemoglobin 11.3 and platelets 380 K. Sodium 147, creatinine 0.9, glucose 146, ammonia was slightly elevated at 45, TSH is normal level at 1.8. Urine drug screen was unremarkable, serum salicylate less than 1, acetaminophen less than 10 , valproic acid less than 10 and serum alcohol less than 10. NG tube was placed in the ICU and she has about 300 mL of dark fluid drained. Garcia catheter showing dark-colored urine about 300 mL Review of Systems N/a patient could not provide information due to her mental status change Past Medical History Past Medical History: Osteoarthritis (OA) Additional Past Medical History / Comment(s): parkinsons History of Any Multi-Drug Resistant Organisms: None Reported Past Surgical History: No Surgical Hx Reported Past Anesthesia/Blood Transfusion Reactions: No Reported Reaction Past Psychological History: Anxiety Smoking Status: Never smoker Past Alcohol Use History: None Reported Past Drug Use History: None Reported - Past Family History Mother Additional Family Medical History / Comment(s): pt states her mother needed a new heart, from a "bad" heart. Father was an alchoholic-per pt. Sister has heart problems and alzhiemers Medications and Allergies Home Medications Medication Instructions Recorded Confirmed Type No Known Home Medications 03/09/20 03/09/20 History Allergies Allergy/AdvReac Type Severity Reaction Status Date / Time Penicillins Allergy Rash/Hives Verified 03/09/20 18:56 Physical Exam Vitals: Vital Signs Temp Pulse Pulse Resp BP BP Pulse Ox 03/10/20 10:00 121 H 24 88/55 03/10/20 09:45 97.0 F L 124 H 17 92/63 03/10/20 09:30 133 H 23 102/35 03/10/20 09:15 137 H 24 90/55 03/10/20 09:00 147 H 24 90/73 03/10/20 08:45 131 H 22 83/58 03/10/20 08:32 100/69 03/10/20 07:00 97.6 F 120 H 20 80/56 03/09/20 22:40 99.2 F 105 H 18 127/76 96 03/09/20 22:30 97.9 F 109 H 147/79 94 L 03/09/20 21:45 108 H 16 120/70 99 03/09/20 21:00 105 H 14 03/09/20 19:01 122 H 18 114/82 100 03/09/20 18:00 128 H 18 124/88 100 03/09/20 17:42 128 H 18 124/88 100 03/09/20 16:30 99.0 F 129 H 30 H 142/94 98 Intake and Output 03/09/20 03/10/20 03/10/20 22:59 06:59 14:59 Intake Total 1000 Output Total 150 225 Balance -150 775 Intake: IV 1000 D5W bolus 1000 Output: Urine 150 225 Straight 150 Other: Voiding Method Diaper Incontinent # Voids 1 # Emeses 2 Weight 40.823 kg 40.823 kg -GENERAL: The patient is confused and does not follow commands. She is severely malnourished and cachectic looking HEENT: Pupils are round and equally reacting to light. EOMI. No scleral icterus. No conjunctival pallor. Normocephalic, atraumatic. No pharyngeal erythema. No thyromegaly. CARDIOVASCULAR: S1 and S2 present. No murmurs, rubs, or gallops. PULMONARY: Chest is clear to auscultation, no wheezing or crackles. -ABDOMEN: Significantly distended and tender especially in the lower part of the abdomen, normoactive bowel sounds. No palpable organomegaly. MUSCULOSKELETAL: No joint swelling or deformity. EXTREMITIES: No cyanosis, clubbing, or pedal edema. NEUROLOGICAL: Gross neurological examination did not reveal any focal deficits. SKIN: No rashes. no petechiae. Results CBC & Chem 7: 03/10/20 10:50 03/10/20 10:50 Labs: Abnormal Lab Results - Last 24 Hours (Table) 03/09/20 03/09/20 03/09/20 Range/Units 17:25 17:25 18:22 WBC 16.0 H (3.8-10.6) k/uL RBC 5.70 H (3.80-5.40) m/uL Hgb 11.3 L (11.4-16.0) gm/dL MCV 70.1 L (80.0-100.0) fL MCH 19.9 L (25.0-35.0) pg MCHC 28.4 L (31.0-37.0) g/dL RDW 20.1 H (11.5-15.5) % Neutrophils # 13.2 H (1.3-7.7) k/uL ABG pH (7.35-7.45) ABG pCO2 (35-45) mmHg ABG pO2 (83-108) mmHg ABG HCO3 (21-25) mmol/L ABG O2 Saturation (94-97) % Sodium 147 H (137-145) mmol/L Chloride 114 H (98-107) mmol/L Carbon Dioxide 21 L (22-30) mmol/L BUN 45 H (7-17) mg/dL Glucose 146 H (74-99) mg/dL POC Glucose (mg/dL) (75-99) mg/dL Calcium 7.9 L (8.4-10.2) mg/dL Phosphorus 5.3 H (2.5-4.5) mg/dL Magnesium 2.8 H (1.6-2.3) mg/dL Ammonia 45 H (<30) umol/L 03/10/20 03/10/20 Range/Units 09:10 09:48 WBC (3.8-10.6) k/uL RBC (3.80-5.40) m/uL Hgb (11.4-16.0) gm/dL MCV (80.0-100.0) fL MCH (25.0-35.0) pg MCHC (31.0-37.0) g/dL RDW (11.5-15.5) % Neutrophils # (1.3-7.7) k/uL ABG pH 7.49 H (7.35-7.45) ABG pCO2 24 L (35-45) mmHg ABG pO2 170 H (83-108) mmHg ABG HCO3 18 L (21-25) mmol/L ABG O2 Saturation 99.5 H (94-97) % Sodium (137-145) mmol/L Chloride (98-107) mmol/L Carbon Dioxide (22-30) mmol/L BUN (7-17) mg/dL Glucose (74-99) mg/dL POC Glucose (mg/dL) 257 H (75-99) mg/dL Calcium (8.4-10.2) mg/dL Phosphorus (2.5-4.5) mg/dL Magnesium (1.6-2.3) mg/dL Ammonia (<30) umol/L Thrombosis Risk Factor Assmnt - Choose All That Apply Each Risk Factor Represents 3 Points: Age 75 years or older Thrombosis Risk Factor Assessment Total Risk Factor Score: 3 Thrombosis Risk Factor Assessment Level: Moderate Risk Assessment and Plan Assessment: Severe small bowel obstruction Metabolic encephalopathy secondary to above Severe hypotension and dehydration 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 Continue with antibiotic. Continue with IV fluid. Labs and medication were reviewed.. Continue same treatment. Continue with symptomatic treatment. Resume home medication. Monitor lytes and vitals. DVT and GI prophylaxis. Further recommendationsas per clinical course of the patient DVT prophylaxis: Subcutaneous heparin GI Prophylaxis: Ppi Prognosis is extremely guarded
[2020-03-10] MEDS ORDERED: Potassium Replacement Protocol 1 EACH MISC MISCELLANE PRN (13:52)
[2020-03-10] MEDS: POTASSIUM CHLORIDE 10 MEQ in WATER FOR INJECTION 1 100ML.BAG IVPB SCH ×4 (14:01→18:44)
[2020-03-10] MEDS: NOREPINEPHRINE 4 MG in SODIUM CHLORIDE 0.9% 250 ML IV SCH ×2 (14:17→21:15)
[2020-03-10 14:23] LABS: Appearance,Urine Cloudy (Clear); Bacteria,Urine Moderate /hpf; Bilirubin,Urine Negative (Negative); Blood,Urine Negative (Negative); Color,Urine Dark Yellow; Glucose,Urine (UA) Trace (Negative); Hyaline Casts,Urine 10 /lpf (0-2); Ketones,Urine 2+ (Negative); Leukocyte Esterase,Urine Negative (Negative); Mucus,Urine Many /hpf; Nitrite,Urine Negative (Negative); PH, Urine 5.5 (5.0-8.0); Protein,Urine Trace (Negative); RBC,Urine 2 /hpf (0-5); Specific Gravity,Urine 1.028 (1.001-1.035); Squamous Epithelial Cell,Urine 1 /hpf (0-4); WBC,Urine 6 /hpf (0-5)
--- NOTE | 2020-03-10 14:46 | P.GSCN ---
History of Present Illness Consult date: 03/10/20 Reason for Consult: Small bowel obstruction History of present illness: 79-year-old female brought by EMS to the hospital because of confusion. Apparently she was having some vomiting at home. Describe generalized weakness and lack of energy. Unfit living conditions per EMS. Patient was hypotensive this morning. She was distended. She was vomiting. Abdominal x-rays suggested bowel obstruction. CAT scan confirmed evidence of small bowel obstruction. Patient with leukocytosis and bandemia. Patient with significant lacticacidemia. Decreased urine output. Blood pressure remains labile despite aggressive fluid resuscitation thus far. Nasogastric tube with over 1 L of output. Patient having complaints of abdominal pain per nursing staff. Review of Systems ROS unobtainable: due to mental status Past Medical History Past Medical History: Osteoarthritis (OA) Additional Past Medical History / Comment(s): parkinsons History of Any Multi-Drug Resistant Organisms: None Reported Past Surgical History: No Surgical Hx Reported Past Anesthesia/Blood Transfusion Reactions: No Reported Reaction Past Psychological History: Anxiety Smoking Status: Never smoker Past Alcohol Use History: None Reported Past Drug Use History: None Reported - Past Family History Mother Additional Family Medical History / Comment(s): pt states her mother needed a new heart, from a "bad" heart. Father was an alchoholic-per pt. Sister has heart problems and alzhiemers Medications and Allergies Home Medications Medication Instructions Recorded Confirmed Type No Known Home Medications 03/09/20 03/09/20 History Allergies Allergy/AdvReac Type Severity Reaction Status Date / Time Penicillins Allergy Rash/Hives Verified 03/09/20 18:56 Surgical - Exam Vital Signs Temp Pulse Resp BP Pulse Ox 99.0 F 129 H 30 H 142/94 98 03/09/20 16:30 03/09/20 16:30 03/09/20 16:30 03/09/20 16:30 03/09/20 16:30 Physical exam: General: Elderly malnourished appearing female in mild distress HEENT: Normocephalic, sclerae nonicteric Abdomen: Distended, tympanic, diffuse tenderness Extremities: No edema Neuro: Somewhat lethargic Results - Labs 03/10/20 10:50 03/10/20 10:50 Abnormal Lab Results - Last 24 Hours (Table) 03/09/20 03/09/20 03/09/20 Range/Units 17:25 17:25 18:22 WBC 16.0 H (3.8-10.6) k/uL RBC 5.70 H (3.80-5.40) m/uL Hgb 11.3 L (11.4-16.0) gm/dL MCV 70.1 L (80.0-100.0) fL MCH 19.9 L (25.0-35.0) pg MCHC 28.4 L (31.0-37.0) g/dL RDW 20.1 H (11.5-15.5) % Neutrophils # 13.2 H (1.3-7.7) k/uL Lymphocytes # (Manual) (1.0-4.8) k/uL Metamyelocytes # (Man) (0) k/uL Myelocytes # (Manual) (0) k/uL ABG pH (7.35-7.45) ABG pCO2 (35-45) mmHg ABG pO2 (83-108) mmHg ABG HCO3 (21-25) mmol/L ABG O2 Saturation (94-97) % Sodium 147 H (137-145) mmol/L Chloride 114 H (98-107) mmol/L Carbon Dioxide 21 L (22-30) mmol/L BUN 45 H (7-17) mg/dL Glucose 146 H (74-99) mg/dL POC Glucose (mg/dL) (75-99) mg/dL Plasma Lactic Acid Livan (0.7-2.0) mmol/L Calcium 7.9 L (8.4-10.2) mg/dL Phosphorus 5.3 H (2.5-4.5) mg/dL Magnesium 2.8 H (1.6-2.3) mg/dL AST (14-36) U/L ALT (4-34) U/L Ammonia 45 H (<30) umol/L Total Protein (6.3-8.2) g/dL Albumin (3.5-5.0) g/dL 03/10/20 03/10/20 03/10/20 Range/Units 09:10 09:48 10:50 WBC (3.8-10.6) k/uL RBC (3.80-5.40) m/uL Hgb (11.4-16.0) gm/dL MCV (80.0-100.0) fL MCH (25.0-35.0) pg MCHC (31.0-37.0) g/dL RDW (11.5-15.5) % Neutrophils # (1.3-7.7) k/uL Lymphocytes # (Manual) (1.0-4.8) k/uL Metamyelocytes # (Man) (0) k/uL Myelocytes # (Manual) (0) k/uL ABG pH 7.49 H (7.35-7.45) ABG pCO2 24 L (35-45) mmHg ABG pO2 170 H (83-108) mmHg ABG HCO3 18 L (21-25) mmol/L ABG O2 Saturation 99.5 H (94-97) % Sodium 135 L (137-145) mmol/L Chloride 108 H (98-107) mmol/L Carbon Dioxide 18 L (22-30) mmol/L BUN 38 H (7-17) mg/dL Glucose 492 H (74-99) mg/dL POC Glucose (mg/dL) 257 H (75-99) mg/dL Plasma Lactic Acid Livan (0.7-2.0) mmol/L Calcium 6.5 L (8.4-10.2) mg/dL Phosphorus (2.5-4.5) mg/dL Magnesium (1.6-2.3) mg/dL AST 45 H (14-36) U/L ALT 60 H (4-34) U/L Ammonia (<30) umol/L Total Protein 3.6 L (6.3-8.2) g/dL Albumin 1.8 L (3.5-5.0) g/dL 03/10/20 03/10/20 Range/Units 10:50 10:50 WBC 2.8 L (3.8-10.6) k/uL RBC (3.80-5.40) m/uL Hgb 10.4 L (11.4-16.0) gm/dL MCV 72.1 L (80.0-100.0) fL MCH 20.0 L (25.0-35.0) pg MCHC 27.7 L (31.0-37.0) g/dL RDW 20.1 H (11.5-15.5) % Neutrophils # (1.3-7.7) k/uL Lymphocytes # (Manual) 0.34 L (1.0-4.8) k/uL Metamyelocytes # (Man) 0.14 H (0) k/uL Myelocytes # (Manual) 0.03 H (0) k/uL ABG pH (7.35-7.45) ABG pCO2 (35-45) mmHg ABG pO2 (83-108) mmHg ABG HCO3 (21-25) mmol/L ABG O2 Saturation (94-97) % Sodium (137-145) mmol/L Chloride (98-107) mmol/L Carbon Dioxide (22-30) mmol/L BUN (7-17) mg/dL Glucose (74-99) mg/dL POC Glucose (mg/dL) (75-99) mg/dL Plasma Lactic Acid Livan 6.9 H* (0.7-2.0) mmol/L Calcium (8.4-10.2) mg/dL Phosphorus (2.5-4.5) mg/dL Magnesium (1.6-2.3) mg/dL AST (14-36) U/L ALT (4-34) U/L Ammonia (<30) umol/L Total Protein (6.3-8.2) g/dL Albumin (3.5-5.0) g/dL Diabetes panel 03/09/20 03/10/20 Range/Units 17:25 10:50 Sodium 147 H 135 L (137-145) mmol/L Potassium 4.0 3.6 (3.5-5.1) mmol/L Chloride 114 H 108 H (98-107) mmol/L Carbon Dioxide 21 L 18 L (22-30) mmol/L BUN 45 H 38 H (7-17) mg/dL Creatinine 0.96 0.90 (0.52-1.04) mg/dL Glucose 146 H 492 H (74-99) mg/dL Calcium 7.9 L 6.5 L (8.4-10.2) mg/dL AST 45 H (14-36) U/L ALT 60 H (4-34) U/L Alkaline Phosphatase 63 (38-126) U/L Total Protein 3.6 L (6.3-8.2) g/dL Albumin 1.8 L (3.5-5.0) g/dL Thyroid panel 03/09/20 Range/Units 17:25 TSH 1.860 (0.465-4.680) mIU/L Calcium panel 03/09/20 03/10/20 Range/Units 17:25 10:50 Calcium 7.9 L 6.5 L (8.4-10.2) mg/dL Phosphorus 5.3 H (2.5-4.5) mg/dL Albumin 1.8 L (3.5-5.0) g/dL Pituitary panel 03/09/20 03/09/20 03/10/20 Range/Units 17:25 17:25 10:50 Sodium 147 H 135 L (137-145) mmol/L Potassium 4.0 3.6 (3.5-5.1) mmol/L Chloride 114 H 108 H (98-107) mmol/L Carbon Dioxide 21 L 18 L (22-30) mmol/L BUN 45 H 38 H (7-17) mg/dL Creatinine 0.96 0.90 (0.52-1.04) mg/dL Glucose 146 H 492 H (74-99) mg/dL Calcium 7.9 L 6.5 L (8.4-10.2) mg/dL TSH 1.860 (0.465-4.680) mIU/L Adrenal panel 03/09/20 03/10/20 Range/Units 17:25 10:50 Sodium 147 H 135 L (137-145) mmol/L Potassium 4.0 3.6 (3.5-5.1) mmol/L Chloride 114 H 108 H (98-107) mmol/L Carbon Dioxide 21 L 18 L (22-30) mmol/L BUN 45 H 38 H (7-17) mg/dL Creatinine 0.96 0.90 (0.52-1.04) mg/dL Glucose 146 H 492 H (74-99) mg/dL Calcium 7.9 L 6.5 L (8.4-10.2) mg/dL Total Bilirubin 0.8 (0.2-1.3) mg/dL AST 45 H (14-36) U/L ALT 60 H (4-34) U/L Alkaline Phosphatase 63 (38-126) U/L Total Protein 3.6 L (6.3-8.2) g/dL Albumin 1.8 L (3.5-5.0) g/dL Assessment and Plan (1) Bowel obstruction Narrative/Plan: I was able to finally contact the patient's daughter by phone. She was not able to provide any significant history as to the patient's current condition although states that she was caring for herself with assistance at home. We discussed the seriousness of the condition currently. I discussed how risky any surgical intervention would be given the patient's current condition. They would like for us to proceed. We'll proceed with exploratory laparotomy with possible bowel resection and possible ostomy. Risks of bleeding, infection, leak, abscess, ostomy, respiratory failure, cardiac failure, hernia, dehiscence, and . Patient's daughter understands and wishes to proceed. Current Visit: Yes Status: Acute Code(s): K56.609 - UNSP INTESTNL OBST, UNSP TO PARTIAL VERSUS COMPLETE OBST SNOMED Code(s): 79243251
[2020-03-10 15:44] LABS: INR 1.4 (<1.2); Partial Thromboplastin Time 26.6 sec (22.0-30.0); Prothrombin Time 13.7 sec (9.0-12.0)
--- NOTE | 2020-03-10 16:03 | XR ---
EXAMINATION TYPE: XR chest 1V confirm line [facility] DATE OF EXAM: 03/10/2020 COMPARISON: 03/10/2020 HISTORY: Line placement TECHNIQUE: Single frontal view of the chest is obtained. FINDINGS: Left-sided central line seen with the tip overlying the right atrium. Hyperinflation brandon tible COPD. NG tube seen extending into the abdomen. Numerous dilated small bowel loops are seen. No pneumothorax. Subsegmental changes involving the lung bases. Hyperinflation suggests COPD. IMPRESSION: 1. Central line with the tip overlying the right atrium. No sizable pneumothorax. 2. Correlate for small bowel obstruction. 3. COPD
[2020-03-10] MEDS ORDERED: PHENYLEPHRINE-0.9% NACL SYG 1 MG/10 ML SYRINGE ONE (16:12)
[2020-03-10] MEDS ORDERED: ETOMIDATE 2 MG/ML 10 ML VIAL ONE (16:12)
[2020-03-10] MEDS ORDERED: SUCCINYLCHOLINE CHLORIDE 100 MG/5 ML SYR IV ONE (16:12)
[2020-03-10] MEDS ORDERED: fentaNYL (PF) 50 MCG/ML 2 ML AMP ONE (16:12)
[2020-03-10] MEDS ORDERED: ROCURONIUM 10 MG/ML (5 ML VIAL) IV ONE (16:12)
[2020-03-10] MEDS: HEPARIN SODIUM,PORCINE 5,000 UNIT/ML 1 ML VIAL SQ SCH (16:20)
[2020-03-10] MEDS ORDERED: LACTATED RINGERS 1,000 ML IV ONE (17:18)
--- NOTE | 2020-03-10 18:22 | P.OP ---
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 The patient was placed under general anesthesia. Abdomen was then prepped and draped sterilely. Midline incision made using the scalpel. Dissection through the subcutaneous tissues and fascia took place using electrocautery. Entrance into the perineal cavity occurred. The patient had purulent fluid present within the abdominal cavity that was evacuated. Bookwalter retractor was utilized. Patient's small bowel was markedly distended all the way to the ileocecal valve or there was a palpable mass. At the cecum itself there appeared to be a small perforation which was likely the source of peritonitis. At that time the bowel contents were milked proximally into the stomach. Another 500-1 L of thick diarrhea was evacuated. The cecum and terminal ileum were mobilized by incising the peritoneum. The mesentery of the cecum and ascending colon was brought medially. Care was taken to avoid injury to the distended duodenum and the right ureter. The transverse colon was then divided using a linear 75 blue load stapler. The ileum was then divided using a linear 75 green load stapler. Mesentery of the transverse colon and ascending colon cecum and terminal ileum was then divided using a combination of 0 silk ties and the LigaSure device. Specimen was passed off at that point. The abdomen was copiously irrigated. No bleeding was seen. The bowel was somewhat ischemic appearing throughout. The patient remained on pressors at this point of the procedure. The bowel wall was significantly edematous and I chose at that point to proceed with an end ileostomy. A circular incision was made in the right midabdomen. Entrance into the abdomen occurred. The ileum was brought out through this opening. I also brought a corner of the stapled transverse colon into the defect. The midline fascia was closed using 2 separate double-stranded looped PDS sutures. The skin was closed using ashish. The ostomies were both matured using interrupted 3-0 Vicryl sutures. There was adequate length to perform a re-anastomosis if necessary in the short-term through the ostomy incision itself. The bowel had been sutured to the strong fascia using 3-0 silk sutures. Only a small corner of the mucous fistula was matured. An ostomy appliance was applied. Sterile dressings were applied. At the end of this procedure the sponge needle and ensure counts were correct. DISPOSITION: Stable to recovery room
[2020-03-10] MEDS ORDERED: LEVOFLOXACIN 500MG-D5W PMX 500 MG in DEXTROSE/WATER 1 100ML.BAG IVPB SCH (18:30)
[2020-03-10 18:37] LABS: Glucose,Whole Blood 312 mg/dL (75-99)
--- NOTE | 2020-03-10 19:17 | XR ---
EXAMINATION TYPE: XR chest 1V portable DATE OF EXAM: 03/10/2020 COMPARISON: Today HISTORY: Check tube placement TECHNIQUE: FINDINGS: Endotracheal tube is 1.9 cm from the erika. There is some minimal atelectasis left lung ba se. There is slight elevated left diaphragm. There is no heart failure. There is nasogastric tube loo ped in the stomach. There is left-sided central venous catheter with tip in the right atrium. IMPRESSION: There is some minimal infiltrate and atelectasis left lung base slightly increased compar ed to exam 3 hours ago.
[2020-03-10 19:34] LABS: ABG Base Excess -8.9 mmol/L; ABG HCO3 16 mmol/L (21-25); ABG Oxygen Saturation 99.7 % (94-97); ABG PCO2 28 mmHg (35-45); ABG PH 7.38 (7.35-7.45); ABG PO2 371 mmHg (83-108); ABG TCO2 17 mmol/L (19-24); Allen Test Performed? Yes
[2020-03-10] MEDS ORDERED: INSULIN ASPART (NovoLOG) 100 UNIT/ML VIAL SQ SCH (20:00)
[2020-03-10 21:06] LABS: Glucose,Whole Blood 252 mg/dL (75-99)
[2020-03-10] MEDS: CHLORHEXIDINE GLUCONATE 15 ML CUP MUCOUS MEM SCH (21:34)
[2020-03-10 22:17] LABS: Anisocytosis Slight; HCT 40.3 % (34.0-46.0); HGB 11.8 gm/dL (11.4-16.0); Hypochromasia Marked; MCH 19.7 pg (25.0-35.0); MCHC 29.3 g/dL (31.0-37.0); MCV 67.3 fL (80.0-100.0); Mean Platelet Volume 8.8; Microcytosis Marked; Platelet Count 285 k/uL (150-450); RBC 5.99 m/uL (3.80-5.40); RDW 19.7 % (11.5-15.5); WBC 13.3 k/uL (3.8-10.6)
[2020-03-10 22:29] LABS: Calcium 6.6 mg/dL (8.4-10.2); Potassium 4.4 mmol/L (3.5-5.1)
[2020-03-10] MEDS ORDERED: NOREPINEPHRIN 4 MG-0.9% NS PMX 4 MG/250 ML ML IV ONE (22:37)
[2020-03-11 00:16] LABS: Glucose,Whole Blood 222 mg/dL (75-99)
[2020-03-11] MEDS: metroNIDAZOLE-NS PMX 500 MG in SALINE 1 100ML.BAG IVPB SCH ×2 (00:17→08:06)
[2020-03-11] MEDS: NOREPINEPHRINE 32 MG in SODIUM CHLORIDE 0.9% 218 ML IV SCH ×2 (00:18→12:42)
[2020-03-11] MEDS: HEPARIN SODIUM,PORCINE 5,000 UNIT/ML 1 ML VIAL SQ SCH ×2 (00:25→08:05)
[2020-03-11] MEDS: INSULIN ASPART (NovoLOG) 100 UNIT/ML VIAL SQ SCH ×3 (00:25→12:49)
[2020-03-11] MEDS ORDERED: SODIUM CHLORIDE 0.9% 150 ML with VASOPRESSIN 60 UNIT IV SCH ×2 (01:00)
[2020-03-11 04:43] LABS: Anisocytosis Slight; HCT 43.2 % (34.0-46.0); HGB 12.3 gm/dL (11.4-16.0); Hypochromasia Marked; MCH 20.1 pg (25.0-35.0); MCHC 28.4 g/dL (31.0-37.0); MCV 70.7 fL (80.0-100.0); Mean Platelet Volume 8.7; Microcytosis Marked; Platelet Count 184 k/uL (150-450); RBC 6.11 m/uL (3.80-5.40); RDW 19.7 % (11.5-15.5); WBC 20.1 k/uL (3.8-10.6)
[2020-03-11 04:46] LABS: ABG Oxygen Saturation 98.9 % (94-97); ABG PCO2 21 mmHg (35-45); ABG PH 7.26 (7.35-7.45); ABG PO2 171 mmHg (83-108); ABG TCO2 10 mmol/L (19-24); Allen Test Performed? Yes
[2020-03-11 04:50] LABS: ABG HCO3 9 mmol/L (21-25)
[2020-03-11 04:57] LABS: Ionized Calcium 4.3 mg/dL (4.5-5.3)
[2020-03-11 05:06] LABS: Albumin 1.5 g/dL (3.5-5.0); Magnesium 1.8 mg/dL (1.6-2.3); Phosphorus 4.7 mg/dL (2.5-4.5); Potassium 4.9 mmol/L (3.5-5.1); Total Bilirubin 0.8 mg/dL (0.2-1.3); Total Protein 3.1 g/dL (6.3-8.2)
[2020-03-11 05:19] LABS: Calcium 6.3 mg/dL (8.4-10.2)
[2020-03-11] MEDS ORDERED: DEXTROSE 5% IN WATER 1,000 ML with SODIUM BICARB (1 MEQ/ML) 150 ML IV SCH (06:00)
[2020-03-11 06:36] LABS: Band Neutrophils % 58 %; Lymphocytes # (M) 4.22 k/uL (1.0-4.8); Metamyelocytes % 1 %; Neutrophils % (M) 20 %; Nucleated Red Blood Cells 0 /100 WBC (0-0); Total Cells Counted 200
[2020-03-11 06:37] LABS: Large Platelets Present
[2020-03-11] MEDS: LACTATED RINGERS 1,000 ML IV SCH (06:38)
[2020-03-11 06:39] LABS: Polychromasia Present
[2020-03-11 06:43] LABS: Glucose,Whole Blood 131 mg/dL (75-99)
--- NOTE | 2020-03-11 07:17 | PCN ---
PROCEDURE NOTE PULMONARY/CRITICAL CARE PROCEDURE NOTE: PROCEDURE: Right radial art line. PREOPERATIVE DIAGNOSIS: Frequent blood draws and blood gas monitoring. POSTOPERATIVE DIAGNOSIS: Frequent blood draws and blood gas monitoring. OPERATORS: Dr. Garcia and Vaishnavi Gutierrez. The right radial site was used. ARTERIAL LINE PLACEMENT: Indications: Hemodynamic monitoring. A time-out was completed verifying correct patient, procedure, site, positioning, and implant(s) or special equipment if applicable. Vitaly's test was performed to ensure adequate perfusion. The patient's right wrist was prepped and draped in sterile fashion. 1% Lidocaine was used to anesthetize the area. An 18G Arrow arterial line was introduced into the right radial artery. The catheter was threaded over the guide wire and the needle was removed with appropriate pulsatile blood return. Blood loss was minimal. The catheter was then sutured in place to the skin and a sterile dressing applied. Perfusion to the extremity distal to the point of catheter insertion was checked and found to be adequate. The patient tolerated the procedure well and there were no complications. There was no immediate complication. There was good blood return and waveform. The patient tolerated the procedure well. The catheter was sutured in place. There was no immediate complication. The dressing was applied by the nurse. There was informed consent and universal timeout. MMODL / IJN: [id number] /
--- NOTE | 2020-03-11 07:22 | PCN ---
PROCEDURE NOTE PROCEDURE: Left internal jugular triple-lumen catheter. PREOP DIAGNOSIS: Administration of fluids and pressors. POSTOP DIAGNOSIS: Administration of fluids and pressors. INDICATION: Hemodynamic monitoring/Intravenous access. A time-out was completed verifying correct patient, procedure, site, positioning, and implant(s) or special equipment if applicable. The patient was placed in a dependent position appropriate for triple lumen catheter placement based on the vein to be cannulated. The patient's left neck was prepped and draped in sterile fashion. 1% Lidocaine was used to anesthetize the surrounding skin area. A triple lumen 9F Cordis catheter was introduced into the left internal jugular vein using Seldinger technique. The catheter was threaded smoothly over the guide wire and appropriate blood return was obtained. Each lumen of the catheter was evacuated of air and flushed with sterile saline. The catheter was then sutured in place to the skin and a sterile dressing applied by the nurse. Perfusion to the extremity distal to the point of catheter insertion was checked and found to be adequate. There was no immediate complication. There was good blood return from all three ports. The patient tolerated the procedure well. A chest x-ray will be ordered. The tip of the catheter was noted to be in the junction of the superior vena cava/right atrium. MMODL / IJN: [id number] /
[2020-03-11] MEDS: CHLORHEXIDINE GLUCONATE 15 ML CUP MUCOUS MEM SCH (08:05)
[2020-03-11] MEDS ORDERED: PANTOPRAZOLE 40 MG/10 ML VIAL IV SCH (09:00)
--- NOTE | 2020-03-11 10:27 | XR ---
EXAMINATION TYPE: XR chest 1V DATE OF EXAM: 03/11/2020 COMPARISON: Prior chest x-ray 03/10/2020 HISTORY: Shortness of breath TECHNIQUE: Single frontal view of the chest is obtained. FINDINGS: Patient is rotated. Orogastric tube is overlying appropriate position, distal tip overlyin g left upper quadrant. Endotracheal tube is overlying the tracheal air column in appropriate position . Left jugular central venous catheter shows the distal tip near the cavoatrial junction level. There are prominent lung volumes and overlying artifacts, no evident pneumothorax. Bibasilar density is no valeriano. Heart is likely stable. IMPRESSION: There are likely some subsegmental basilar atelectatic changes.
[2020-03-11] MEDS ORDERED: IPRATROPIUM-ALBUTEROL 3 ML NEB INHALATION SCH (11:00)
[2020-03-11] MEDS ORDERED: LEVOFLOXACIN 250MG-D5W PMX 250 MG in DEXTROSE/WATER 1 50ML.BAG IVPB SCH (11:00)
[2020-03-11 12:08] VITALS: BP 105/73; PULSE 124; RESP 19; TEMP 95.9
[2020-03-11 12:48] LABS: Glucose,Whole Blood 119 mg/dL (75-99)
[2020-03-11 12:48] LABS: Glucose,Whole Blood 67 mg/dL (75-99)
[2020-03-11] MEDS ORDERED: LORazepam 2 MG/ML INJ IV PRN (12:51)
[2020-03-11] MEDS ORDERED: MORPHINE SULFATE 2 MG/ML SYRINGE IV PRN (12:51)
[2020-03-11] MEDS ORDERED: ONDANSETRON 4 MG/2 ML VIAL IVP PRN (12:51)
[2020-03-11] MEDS ORDERED: MORPHINE SULFATE 4 MG/ML SYRINGE IV PRN (12:51)
[2020-03-11] MEDS ORDERED: ATROPINE OPHTH SOLN 1% 5ML BTL SUBLINGUAL PRN (12:51)
[2020-03-11] MEDS ORDERED: SCOPOLAMINE 1.5MG/72HR PATCH TRANSDERM SCH (13:00)
[2020-03-11] MEDS ORDERED: MORPHINE SULFATE (100 MG/2 ML) 100 MG in SODIUM CHLORIDE 0.9% 100 ML IV SCH (13:00)
--- NOTE | 2020-03-11 13:14 | PN ---
PROGRESS NOTE PULMONARY/CRITICAL CARE PROGRESS NOTE: DATE OF SERVICE: March 11, 2020 Critical care time: 34 minutes. HISTORY: This is an 79-year-old female who we saw yesterday in consultation. She has a history of Parkinson's disease and osteoarthritis. The patient was brought to the emergency room on March 09. She apparently came in with mental status changes. Not much of a history was obtained from her. She apparently had severe abdominal pain and distention. She had an x-ray of the abdomen which revealed a distal small-bowel obstruction or ileus. She went to the operating room yesterday. She is postop day #1. Dr. Germain did the surgery. She underwent exploratory laparotomy, small-bowel resection, and ileostomy. The patient apparently had a palpable mass somewhere in the intestinal tract, which likely was consistent with cancer according to Dr. Germain. Anyway, she has done very poorly overnight. Yesterday before she went to the operating room, we placed a right radial art line and a left internal jugular triple-lumen catheter. Those are both still intact. She came back from the operating room last night on the ventilator. She is on the volume assist-control mode rate of 10, tidal volume 350, FiO2 30%, PEEP of 5. Blood gases show pO2 of 171, pCO2 of 21, and a pH 7.26. These blood gases consistent with a severe metabolic acidosis. She was on 50% when those gases were done and she was dropped down to 30%. Currently, she is getting 3 amps of sodium bicarbonate and D5W at 75 mL an hour, norepinephrine at 32 mcg/minute days, vasopressin 0.03 units/minute, propofol at 10 mics per kg per minute and saline at 20 mL an hour. The patient was made a DNR by her daughter apparently last night. The daughter is coming to talk about possible hospice and/or withdrawal from life support. Her overall condition is not good and she has not done well overnight. Also, given the findings operatively, things do not look good. PHYSICAL EXAMINATION: VITAL SIGNS: Current vital signs reviewed. Temperature is 97.7 heart rate 129, respiratory rate is 30, blood pressure 100/65, mean 76, and saturations are 100%. GENERAL: Appears in no acute distress. HEENT: Examination is grossly unremarkable. There is an orally placed endotracheal tube. There is also an NG tube. NECK: Supple. Full range of motion. There is a left internal jugular triple-lumen catheter in place. CARDIOVASCULAR: Examination reveals tachycardia. It is sinus. Heart rate about 130 beats per minute. LUNGS: Reveal diffuse coarse rhonchi. Breath sounds equal. ABDOMEN reveals evidence of an ileostomy. No bowel sounds. EXTREMITIES are intact. No cyanosis, clubbing, or edema. The extremities are cool. SKIN: Without rash. NEUROLOGIC: Examination could not be adequately assessed. LABS: Reviewed. White count 20.1, hemoglobin 12.3, hematocrit 43.2, and a platelet count a 184,000, blood gases have been noted. Sodium 132, potassium 4.9, chloride 113. CO2 of 9, anion gap is 10, BUN and creatinine were 30 and 1.13. Lactic acid 7.6, calcium 6.3, ionized calcium 4.3, phosphorus 4.7, magnesium 1.8. AST and ALT were 44 and 45 respectively. Albumin 1.5. Microbiology is currently pending or negative. The most recent chest x-ray from this morning shows a properly placed central line. Lung brink are relatively clear. There are bilateral small effusions and some basilar atelectasis. CURRENT MEDICATIONS: Reviewed. She is currently on chlorhexidine, subcu heparin, insulin, DuoNeb, Levaquin, Flagyl, norepinephrine, Protonix, potassium replacement, Diprivan, vasopressin, and bicarb drip. ASSESSMENT: 1. Postop day #1, status post exploratory laparotomy with small bowel resection and ileostomy for bowel obstruction, which may relate to underlying malignancy. 2. Status post intubation and mechanical ventilation on March 10, at the time of surgery with routine postoperative ventilator management. 3. Profound metabolic acidosis. 4. Lactic acidemia. 5. Severe hypotension, unresponsive to fluid administration, norepinephrine, and vasopressin, secondary to sepsis. 6. Acute hypoxemic respiratory failure. 7. Mental status changes, secondary to sepsis. 8. History of degenerative joint disease. 9. History of Parkinson's disease. PLAN: Overall, the patient's condition is grave. Apparently, the daughter has made the patient a DNR. She apparently is coming in to see the daughter and may decide to move towards comfort measures and withdrawal from life support. She has a central line and art line that was placed yesterday. She is on a bicarbonate drip with 3 amps of bicarb and D5W running at 75 mL an hour. In addition, she is on norepinephrine at 32 mcg/minutes and vasopressin 0.03 units/minute. She is also receiving propofol at 10 mics per kg per minute. Additional recommendations and suggestions are forthcoming. We will continue to follow. Again prognosis is very poor. Critical care time 34 minutes. IDRIS / THO: [id number] /
--- NOTE | 2020-03-11 14:01 | P.PN ---
Subjective Progress Note Date: 03/11/20 Principal diagnosis: Cecal mass with perforation and small bowel obstruction Patient has not done well overnight. Not responding to resuscitation. Remains on high-dose pressors with marginal blood pressure. Applications ostomy now ischemic appearing. Family is considering hospice/comfort measures. Objective - Vital Signs Vital signs: Vital Signs Temp 95.9 F L 03/11/20 12:00 Pulse 124 H 03/11/20 12:00 Resp 19 03/11/20 12:00 BP 105/73 03/11/20 12:00 Pulse Ox 99 03/11/20 10:45 Intake & Output 03/10/20 03/11/20 03/11/20 18:59 06:59 18:59 Intake Total 7758.957 1383.444 717.581 Output Total 1035 55 0 Balance 6723.957 1328.444 717.581 Weight 40.823 kg 57.4 kg Intake: IV 7600 1200 575 D5W bolus 2000 Dextrose 5% in Water 1, 500 000 ml @ 100 mls/hr IV . Q10H [facility] Rx#:[id number] Dextrose 5% in Water 1, 375 000 ml @ 75 mls/hr IV . [id number] [facility] with Sodium Bicarb (1 Meq/ml) 150 ml Rx#:[id number] Lactated Ringers 1,000 ml 1100 100 @ 100 mls/hr IV .Q10H [facility] Rx#:[id number] Lactated Ringers 1,000 ml 4000 @ 999 mls/hr IV .Q1H1M [facility] Rx#:[id number] Levofloxacin 250Mg-D5w 100 Pmx 250 mg In Dextrose/ Water 1 50ml.bag @ 50 mls /hr IVPB Q24H [facility] Rx#: [id number] Potassium Chloride 10 meq 200 In Water For Injection 1 100ml.bag @ 100 mls/hr IVPB Q1HR [facility] Rx#: [id number] metroNIDAZOLE-NS PMX 500 100 100 mg In Saline 1 100ml.bag @ 100 mls/hr IVPB Q8HR [facility] Rx#:[id number] Intake, IV Titration 158.957 183.444 142.581 Amount Norepinephrine 32 mg In 60.932 128.146 Sodium Chloride 0.9% 218 ml @ 0.05 MCG/KG/MIN 0. 957 mls/hr IV .Q24H [facility] Rx#:[id number] Norepinephrine 4 mg In 158.957 60.012 Sodium Chloride 0.9% 250 ml @ 0.05 MCG/KG/MIN 7. 777 mls/hr IV .Q24H [facility] Rx#:[id number] propofoL 1,000 mg In 62.500 14.435 Empty Bag 1 bag @ Titrate IV .Q0M [facility] Rx#: [id number] Output: Gastric Drainage 600 Urine 385 55 0 Estimated Blood Loss 50 Other: Voiding Method Indwelling Catheter Indwelling Catheter Indwelling Catheter # Voids 0 ABP, PAP, CO, CI - Last Documented Arterial Blood Pressure 39/37 - Exam Abdomen: Soft, mild distention, ostomy dusky - Labs CBC & Chem 7: 03/11/20 04:15 03/11/20 04:15 Labs: Abnormal Lab Results - Last 24 Hours (Table) 03/10/20 03/10/20 03/10/20 Range/Units 13:32 14:45 14:45 WBC (3.8-10.6) k/uL RBC (3.80-5.40) m/uL MCV (80.0-100.0) fL MCH (25.0-35.0) pg MCHC (31.0-37.0) g/dL RDW (11.5-15.5) % Neutrophils # (Manual) (1.3-7.7) k/uL Metamyelocytes # (Man) (0) k/uL PT 13.7 H (9.0-12.0) sec INR 1.4 H (<1.2) ABG pH (7.35-7.45) ABG pCO2 (35-45) mmHg ABG pO2 (83-108) mmHg ABG HCO3 (21-25) mmol/L ABG Total CO2 (19-24) mmol/L ABG O2 Saturation (94-97) % Sodium (137-145) mmol/L Chloride (98-107) mmol/L Carbon Dioxide (22-30) mmol/L BUN (7-17) mg/dL Creatinine (0.52-1.04) mg/dL Glucose (74-99) mg/dL POC Glucose (mg/dL) (75-99) mg/dL Plasma Lactic Acid Livan 9.9 H* (0.7-2.0) mmol/L Calcium (8.4-10.2) mg/dL Ionized Calcium Gucci (4.5-5.3) mg/dL Phosphorus (2.5-4.5) mg/dL AST (14-36) U/L ALT (4-34) U/L Total Protein (6.3-8.2) g/dL Albumin (3.5-5.0) g/dL Urine Appearance Cloudy H (Clear) Urine Protein Trace H (Negative) Urine Glucose (UA) Trace H (Negative) Urine Ketones 2+ H (Negative) Urine WBC 6 H (0-5) /hpf Urine Bacteria Moderate H (None) /hpf Hyaline Casts 10 H (0-2) /lpf Urine Mucus Many H (None) /hpf 03/10/20 03/10/20 03/10/20 Range/Units 18:36 18:49 19:31 WBC (3.8-10.6) k/uL RBC (3.80-5.40) m/uL MCV (80.0-100.0) fL MCH (25.0-35.0) pg MCHC (31.0-37.0) g/dL RDW (11.5-15.5) % Neutrophils # (Manual) (1.3-7.7) k/uL Metamyelocytes # (Man) (0) k/uL PT (9.0-12.0) sec INR (<1.2) ABG pH (7.35-7.45) ABG pCO2 28 L (35-45) mmHg ABG pO2 371 H (83-108) mmHg ABG HCO3 16 L (21-25) mmol/L ABG Total CO2 17 L (19-24) mmol/L ABG O2 Saturation 99.7 H (94-97) % Sodium (137-145) mmol/L Chloride (98-107) mmol/L Carbon Dioxide (22-30) mmol/L BUN (7-17) mg/dL Creatinine (0.52-1.04) mg/dL Glucose (74-99) mg/dL POC Glucose (mg/dL) 312 H (75-99) mg/dL Plasma Lactic Acid Livan 4.4 H* (0.7-2.0) mmol/L Calcium (8.4-10.2) mg/dL Ionized Calcium Ugcci (4.5-5.3) mg/dL Phosphorus (2.5-4.5) mg/dL AST (14-36) U/L ALT (4-34) U/L Total Protein (6.3-8.2) g/dL Albumin (3.5-5.0) g/dL Urine Appearance (Clear) Urine Protein (Negative) Urine Glucose (UA) (Negative) Urine Ketones (Negative) Urine WBC (0-5) /hpf Urine Bacteria (None) /hpf Hyaline Casts (0-2) /lpf Urine Mucus (None) /hpf 03/10/20 03/10/20 03/10/20 Range/Units 21:01 21:45 21:45 WBC 13.3 H (3.8-10.6) k/uL RBC 5.99 H (3.80-5.40) m/uL MCV 67.3 L (80.0-100.0) fL MCH 19.7 L (25.0-35.0) pg MCHC 29.3 L (31.0-37.0) g/dL RDW 19.7 H (11.5-15.5) % Neutrophils # (Manual) (1.3-7.7) k/uL Metamyelocytes # (Man) (0) k/uL PT (9.0-12.0) sec INR (<1.2) ABG pH (7.35-7.45) ABG pCO2 (35-45) mmHg ABG pO2 (83-108) mmHg ABG HCO3 (21-25) mmol/L ABG Total CO2 (19-24) mmol/L ABG O2 Saturation (94-97) % Sodium (137-145) mmol/L Chloride (98-107) mmol/L Carbon Dioxide (22-30) mmol/L BUN (7-17) mg/dL Creatinine (0.52-1.04) mg/dL Glucose (74-99) mg/dL POC Glucose (mg/dL) 252 H (75-99) mg/dL Plasma Lactic Acid Livan 4.9 H* (0.7-2.0) mmol/L Calcium (8.4-10.2) mg/dL Ionized Calcium Gucci (4.5-5.3) mg/dL Phosphorus (2.5-4.5) mg/dL AST (14-36) U/L ALT (4-34) U/L Total Protein (6.3-8.2) g/dL Albumin (3.5-5.0) g/dL Urine Appearance (Clear) Urine Protein (Negative) Urine Glucose (UA) (Negative) Urine Ketones (Negative) Urine WBC (0-5) /hpf Urine Bacteria (None) /hpf Hyaline Casts (0-2) /lpf Urine Mucus (None) /hpf 03/10/20 03/11/20 03/11/20 Range/Units 21:45 00:15 04:15 WBC (3.8-10.6) k/uL RBC (3.80-5.40) m/uL MCV (80.0-100.0) fL MCH (25.0-35.0) pg MCHC (31.0-37.0) g/dL RDW (11.5-15.5) % Neutrophils # (Manual) (1.3-7.7) k/uL Metamyelocytes # (Man) (0) k/uL PT (9.0-12.0) sec INR (<1.2) ABG pH (7.35-7.45) ABG pCO2 (35-45) mmHg ABG pO2 (83-108) mmHg ABG HCO3 (21-25) mmol/L ABG Total CO2 (19-24) mmol/L ABG O2 Saturation (94-97) % Sodium 130 L 132 L (137-145) mmol/L Chloride 110 H 113 H (98-107) mmol/L Carbon Dioxide 15 L 9 L* (22-30) mmol/L BUN 32 H 30 H (7-17) mg/dL Creatinine 1.13 H (0.52-1.04) mg/dL Glucose 214 H 137 H (74-99) mg/dL POC Glucose (mg/dL) 222 H (75-99) mg/dL Plasma Lactic Acid Livan (0.7-2.0) mmol/L Calcium 6.6 L 6.3 L* (8.4-10.2) mg/dL Ionized Calcium Gucci 4.3 L (4.5-5.3) mg/dL Phosphorus 4.7 H (2.5-4.5) mg/dL AST 44 H (14-36) U/L ALT 45 H (4-34) U/L Total Protein 3.1 L (6.3-8.2) g/dL Albumin 1.5 L (3.5-5.0) g/dL Urine Appearance (Clear) Urine Protein (Negative) Urine Glucose (UA) (Negative) Urine Ketones (Negative) Urine WBC (0-5) /hpf Urine Bacteria (None) /hpf Hyaline Casts (0-2) /lpf Urine Mucus (None) /hpf 03/11/20 03/11/20 03/11/20 Range/Units 04:15 04:15 04:41 WBC 20.1 H (3.8-10.6) k/uL RBC 6.11 H (3.80-5.40) m/uL MCV 70.7 L (80.0-100.0) fL MCH 20.1 L (25.0-35.0) pg MCHC 28.4 L (31.0-37.0) g/dL RDW 19.7 H (11.5-15.5) % Neutrophils # (Manual) 15.60 H (1.3-7.7) k/uL Metamyelocytes # (Man) 0.20 H (0) k/uL PT (9.0-12.0) sec INR (<1.2) ABG pH 7.26 L (7.35-7.45) ABG pCO2 21 L (35-45) mmHg ABG pO2 171 H (83-108) mmHg ABG HCO3 9 L* (21-25) mmol/L ABG Total CO2 10 L (19-24) mmol/L ABG O2 Saturation 98.9 H (94-97) % Sodium (137-145) mmol/L Chloride (98-107) mmol/L Carbon Dioxide (22-30) mmol/L BUN (7-17) mg/dL Creatinine (0.52-1.04) mg/dL Glucose (74-99) mg/dL POC Glucose (mg/dL) (75-99) mg/dL Plasma Lactic Acid Livan 7.6 H* (0.7-2.0) mmol/L Calcium (8.4-10.2) mg/dL Ionized Calcium Gucci (4.5-5.3) mg/dL Phosphorus (2.5-4.5) mg/dL AST (14-36) U/L ALT (4-34) U/L Total Protein (6.3-8.2) g/dL Albumin (3.5-5.0) g/dL Urine Appearance (Clear) Urine Protein (Negative) Urine Glucose (UA) (Negative) Urine Ketones (Negative) Urine WBC (0-5) /hpf Urine Bacteria (None) /hpf Hyaline Casts (0-2) /lpf Urine Mucus (None) /hpf 03/11/20 03/11/20 03/11/20 Range/Units 06:41 09:20 12:45 WBC (3.8-10.6) k/uL RBC (3.80-5.40) m/uL MCV (80.0-100.0) fL MCH (25.0-35.0) pg MCHC (31.0-37.0) g/dL RDW (11.5-15.5) % Neutrophils # (Manual) (1.3-7.7) k/uL Metamyelocytes # (Man) (0) k/uL PT (9.0-12.0) sec INR (<1.2) ABG pH (7.35-7.45) ABG pCO2 (35-45) mmHg ABG pO2 (83-108) mmHg ABG HCO3 (21-25) mmol/L ABG Total CO2 (19-24) mmol/L ABG O2 Saturation (94-97) % Sodium (137-145) mmol/L Chloride (98-107) mmol/L Carbon Dioxide (22-30) mmol/L BUN (7-17) mg/dL Creatinine (0.52-1.04) mg/dL Glucose (74-99) mg/dL POC Glucose (mg/dL) 131 H 67 L (75-99) mg/dL Plasma Lactic Acid Livan 11.7 H* (0.7-2.0) mmol/L Calcium (8.4-10.2) mg/dL Ionized Calcium Gucci (4.5-5.3) mg/dL Phosphorus (2.5-4.5) mg/dL AST (14-36) U/L ALT (4-34) U/L Total Protein (6.3-8.2) g/dL Albumin (3.5-5.0) g/dL Urine Appearance (Clear) Urine Protein (Negative) Urine Glucose (UA) (Negative) Urine Ketones (Negative) Urine WBC (0-5) /hpf Urine Bacteria (None) /hpf Hyaline Casts (0-2) /lpf Urine Mucus (None) /hpf 03/11/20 Range/Units 12:48 WBC (3.8-10.6) k/uL RBC (3.80-5.40) m/uL MCV (80.0-100.0) fL MCH (25.0-35.0) pg MCHC (31.0-37.0) g/dL RDW (11.5-15.5) % Neutrophils # (Manual) (1.3-7.7) k/uL Metamyelocytes # (Man) (0) k/uL PT (9.0-12.0) sec INR (<1.2) ABG pH (7.35-7.45) ABG pCO2 (35-45) mmHg ABG pO2 (83-108) mmHg ABG HCO3 (21-25) mmol/L ABG Total CO2 (19-24) mmol/L ABG O2 Saturation (94-97) % Sodium (137-145) mmol/L Chloride (98-107) mmol/L Carbon Dioxide (22-30) mmol/L BUN (7-17) mg/dL Creatinine (0.52-1.04) mg/dL Glucose (74-99) mg/dL POC Glucose (mg/dL) 119 H (75-99) mg/dL Plasma Lactic Acid Livan (0.7-2.0) mmol/L Calcium (8.4-10.2) mg/dL Ionized Calcium Gucci (4.5-5.3) mg/dL Phosphorus (2.5-4.5) mg/dL AST (14-36) U/L ALT (4-34) U/L Total Protein (6.3-8.2) g/dL Albumin (3.5-5.0) g/dL Urine Appearance (Clear) Urine Protein (Negative) Urine Glucose (UA) (Negative) Urine Ketones (Negative) Urine WBC (0-5) /hpf Urine Bacteria (None) /hpf Hyaline Casts (0-2) /lpf Urine Mucus (None) /hpf Microbiology - Last 24 Hours (Table) 03/10/20 11:00 Blood Culture - Preliminary Blood No Growth after 24 hours 03/10/20 10:50 Blood Culture - Preliminary Blood No Growth after 24 hours Assessment and Plan (1) Bowel obstruction Narrative/Plan: Patient unfortunately has not responded well to resuscitation postoperatively. Family considering comfort measures which I believe is reasonable. We discussed the clinical scenario in detail at the bedside with the family. Current Visit: Yes Status: Acute Code(s): K56.609 - UNSP INTESTNL OBST, UNSP TO PARTIAL VERSUS COMPLETE OBST SNOMED Code(s): 24318932
--- NOTE | 2020-03-14 08:01 | CDI ---
Documentation Clarification Form Date: 03/14/20 From: Ana Biswas Phone: If you have a question about this query, please contact Ilene Alonzo, Medical Administrator at [phone] between 8am and 5pm. Admit Date: 03/09/20 Discharge Date: 03/11/20 Patient Name: MARK GILES Visit Number: [id number] ATTENTION: The Clinical Documentation Specialists (CDI) and [facility] Coding Staff appreciate your assistance in clarifying documentation. Please respond to the clarification below the line at the bottom and electronically sign. The CDI & [facility] Coding staff will review the response and follow-up if needed. Please note: Queries are made part of the Legal Health Record. If you have any questions, please contact the author of this message via ITS. Dear Dr. Miguel Angel Dhillon, The patient presented with the following bowel obstruction on 03/09 @2058. Per A Team notes patient developed hypotension 03/10 @ 0815 and transferred to ICU. Per 03/[address] Garcia, "severe hypotension, unresponsive to fluid administration, norepinephrine and vasopressin, secondary to sepsis. Mental status changes, seconday to sepsis." History/Risk Factors: severe OCM w BMI <19, Parkinson's, OA WBC: 03/09-16.0, 03/10-2.8/13.3, 03/11-201 Lactic acid: -6.9/9.9/4.4/4.9, 03/11-7.6/11.7 Blood cultures: no growth Vitals signs on admission: T-99.0, P-129, R-30, BP-142/94, O2 Sat-98 (RA) Other Clinical Indicators: Glucose-257/312; Cr: 03/11-1.13 Treatment: IV Rocephin, IV fluids, IV Levaquin, IVNorepinephrine, ID Consult: none In your professional opinion, please clarify if these findings signify one of the following conditions, whether the condition is POA, and cause, if known: 1. Condition Sepsis with septic shock Sepsis with without septic shock Other, please specify Unable to determine 2. Present on Admission Yes No 3. Identify the (suspected) organism 4. Link or clarify if there is any associated organ failure (be specific to type) SIRS Criteria (2 or more of the following may indicate SIRS): -Temperature < 96.8F (36C) or > 101.0F (38.3C) -Heart Rate > 90 bpm -Respiratory Rate > 20 breaths/min or PaCO2 < 32 mmHg -White Blood Cell Count > 12,000 or < 4,000 cells/mm3 or > 10% bands -Lactate >2.0 mmol/L (>4.0 is equivalent to septic shock) Sepsis w/Septic shock present on admission; cannot identify organism MTDD
--- NOTE | 2020-03-14 08:05 | CDI ---
Documentation Clarification Form Date: 03/14/20 From: Ana Biswas Phone: If you have a question about this query, please contact Ilene Alonzo, Roller Stainer at [phone] between 8am and 5pm. Admit Date: 03/09/20 Discharge Date: 03/11/20 Patient Name: MARK GILES Visit Number: [id number] ATTENTION: The Clinical Documentation Specialists (CDI) and [facility] Coding Staff appreciate your assistance in clarifying documentation. Please respond to the clarification below the line at the bottom and electronically sign. The CDI & [facility] Coding staff will review the response and follow-up if needed. Please note: Queries are made part of the Legal Health Record. If you have any questions, please contact the author of this message via ITS. Dear Dr. Miguel Angel Dhillon, Can you please dictate the /Discharge Summary and include the likely/preliminary cause of ? Thank you for your assistance. In your professional opinion, can you please clarify ? Other, please specify Unable to determine Bowel obstruction w/ perforation, peritonotis and sepsis MTDD
--- NOTE | 2020-03-14 20:59 | P.PN ---
Subjective Progress Note Date: 03/11/20 79-year-old female patient with a history of Parkinson's disease and osteoarthritis. She is currently on no known home medications. He was brought into the emergency room yesterday by EMS with altered mental status. She is a poor historian and not much history could be taken from the patient. EMS repor valeriano on An unfit living conditions. She was having complaints of abdominal pain. Abdominal x-ray did reveal dilated small bowel suggestive of severe ileus or distal mechanical small bowel obstruction. Chest x-ray revealed no acute pulmonary process. EKG revealed sinus tachycardia with no significant ST or T wave abnormalities. White count 16.0. Hemoglobin 11.3. Sodium 147. Potassium 4.0. Chloride 114. Bicarb 21. Creatinine 0.96. Urine drug screen negative. Ammonia level 45. She was given 4 L of fluid resuscitation in the emergency room along with 1 g of IV Rocephin. She was admitted to the regular medical floor. This morning and A team was called as the patient was quite obtunded, hypotensive and tachycardic. She was transferred to the intensive care unit and seen upon arrival. She is moaning in pain. Abdomen is significantly distended and tender. Blood pressure 80/56. Tachycardic at 120. Requiring 6 L high flow nasal cannula to maintain O2 saturations in the 90s. Her blood gases revealed a PaO2 of 170, pCO2 24, pH 7.49. On 100% FiO2. She is receiving another liter of normal saline. This is changed to D5W. Patient underwent Exploratory laparotomy with right colectomy, end ileostomy, mucous fistula; patient deteriorated postoperatively; condition was d/w family who agreed to make patient comfort care; patient on 03/11/20 Objective - Vital Signs Vital signs: Vital Signs Temp 95.9 F L 03/11/20 12:00 Pulse 124 H 03/11/20 12:00 Resp 19 03/11/20 12:00 BP 105/73 03/11/20 12:00 Pulse Ox 99 03/11/20 10:45 Intake & Output 03/10/20 03/11/20 03/11/20 18:59 06:59 18:59 Intake Total 7758.957 1383.444 717.581 Output Total 1035 55 0 Balance 6723.957 1328.444 717.581 Weight 40.823 kg 57.4 kg Intake: IV 7600 1200 575 D5W bolus 2000 Dextrose 5% in Water 1, 500 000 ml @ 100 mls/hr IV . Q10H [facility] Rx#:[id number] Dextrose 5% in Water 1, 375 000 ml @ 75 mls/hr IV . [id number] [facility] with Sodium Bicarb (1 Meq/ml) 150 ml Rx#:[id number] Lactated Ringers 1,000 ml 1100 100 @ 100 mls/hr IV .Q10H [facility] Rx#:[id number] Lactated Ringers 1,000 ml 4000 @ 999 mls/hr IV .Q1H1M [facility] Rx#:[id number] Levofloxacin 250Mg-D5w 100 Pmx 250 mg In Dextrose/ Water 1 50ml.bag @ 50 mls /hr IVPB Q24H [facility] Rx#: [id number] Potassium Chloride 10 meq 200 In Water For Injection 1 100ml.bag @ 100 mls/hr IVPB Q1HR [facility] Rx#: [id number] metroNIDAZOLE-NS PMX 500 100 100 mg In Saline 1 100ml.bag @ 100 mls/hr IVPB Q8HR [facility] Rx#:[id number] Intake, IV Titration 158.957 183.444 142.581 Amount Norepinephrine 32 mg In 60.932 128.146 Sodium Chloride 0.9% 218 ml @ 0.05 MCG/KG/MIN 0. 957 mls/hr IV .Q24H [facility] Rx#:[id number] Norepinephrine 4 mg In 158.957 60.012 Sodium Chloride 0.9% 250 ml @ 0.05 MCG/KG/MIN 7. 777 mls/hr IV .Q24H [facility] Rx#:[id number] propofoL 1,000 mg In 62.500 14.435 Empty Bag 1 bag @ Titrate IV .Q0M [facility] Rx#: [id number] Output: Gastric Drainage 600 Urine 385 55 0 Estimated Blood Loss 50 Other: Voiding Method Indwelling Catheter Indwelling Catheter Indwelling Catheter # Voids 0 ABP, PAP, CO, CI - Last Documented Arterial Blood Pressure 39/37 - Exam GENERAL EXAM: Obtunded, on 6 L high flow nasal cannula, frail, cachectic 79-year-old female patient. HEAD: Normocephalic. EYES: Normal reaction of pupils, equal size. NOSE: Clear with pink turbinates. THROAT: No erythema or exudates. NECK: No masses, no JVD. CHEST: No chest wall deformity. LUNGS: Equal air entry with no crackles, wheeze, rhonchi or dullness. CVS: S1 and S2 normal with no audible murmur, regular rhythm. Tachycardic. ABDOMEN: Significantly distended and tender, hypoactive bowel sounds positive guarding. - Labs CBC & Chem 7: 03/11/20 04:15 03/11/20 04:15 Labs: Abnormal Lab Results - Last 24 Hours (Table) 03/10/20 03/10/20 03/10/20 Range/Units 13:32 14:45 14:45 WBC (3.8-10.6) k/uL RBC (3.80-5.40) m/uL MCV (80.0-100.0) fL MCH (25.0-35.0) pg MCHC (31.0-37.0) g/dL RDW (11.5-15.5) % Neutrophils # (Manual) (1.3-7.7) k/uL Metamyelocytes # (Man) (0) k/uL PT 13.7 H (9.0-12.0) sec INR 1.4 H (<1.2) ABG pH (7.35-7.45) ABG pCO2 (35-45) mmHg ABG pO2 (83-108) mmHg ABG HCO3 (21-25) mmol/L ABG Total CO2 (19-24) mmol/L ABG O2 Saturation (94-97) % Sodium (137-145) mmol/L Chloride (98-107) mmol/L Carbon Dioxide (22-30) mmol/L BUN (7-17) mg/dL Creatinine (0.52-1.04) mg/dL Glucose (74-99) mg/dL POC Glucose (mg/dL) (75-99) mg/dL Plasma Lactic Acid Livan 9.9 H* (0.7-2.0) mmol/L Calcium (8.4-10.2) mg/dL Ionized Calcium Gucci (4.5-5.3) mg/dL Phosphorus (2.5-4.5) mg/dL AST (14-36) U/L ALT (4-34) U/L Total Protein (6.3-8.2) g/dL Albumin (3.5-5.0) g/dL Urine Appearance Cloudy H (Clear) Urine Protein Trace H (Negative) Urine Glucose (UA) Trace H (Negative) Urine Ketones 2+ H (Negative) Urine WBC 6 H (0-5) /hpf Urine Bacteria Moderate H (None) /hpf Hyaline Casts 10 H (0-2) /lpf Urine Mucus Many H (None) /hpf 03/10/20 03/10/20 03/10/20 Range/Units 18:36 18:49 19:31 WBC (3.8-10.6) k/uL RBC (3.80-5.40) m/uL MCV (80.0-100.0) fL MCH (25.0-35.0) pg MCHC (31.0-37.0) g/dL RDW (11.5-15.5) % Neutrophils # (Manual) (1.3-7.7) k/uL Metamyelocytes # (Man) (0) k/uL PT (9.0-12.0) sec INR (<1.2) ABG pH (7.35-7.45) ABG pCO2 28 L (35-45) mmHg ABG pO2 371 H (83-108) mmHg ABG HCO3 16 L (21-25) mmol/L ABG Total CO2 17 L (19-24) mmol/L ABG O2 Saturation 99.7 H (94-97) % Sodium (137-145) mmol/L Chloride (98-107) mmol/L Carbon Dioxide (22-30) mmol/L BUN (7-17) mg/dL Creatinine (0.52-1.04) mg/dL Glucose (74-99) mg/dL POC Glucose (mg/dL) 312 H (75-99) mg/dL Plasma Lactic Acid Livan 4.4 H* (0.7-2.0) mmol/L Calcium (8.4-10.2) mg/dL Ionized Calcium Gucci (4.5-5.3) mg/dL Phosphorus (2.5-4.5) mg/dL AST (14-36) U/L ALT (4-34) U/L Total Protein (6.3-8.2) g/dL Albumin (3.5-5.0) g/dL Urine Appearance (Clear) Urine Protein (Negative) Urine Glucose (UA) (Negative) Urine Ketones (Negative) Urine WBC (0-5) /hpf Urine Bacteria (None) /hpf Hyaline Casts (0-2) /lpf Urine Mucus (None) /hpf 03/10/20 03/10/20 03/10/20 Range/Units 21:01 21:45 21:45 WBC 13.3 H (3.8-10.6) k/uL RBC 5.99 H (3.80-5.40) m/uL MCV 67.3 L (80.0-100.0) fL MCH 19.7 L (25.0-35.0) pg MCHC 29.3 L (31.0-37.0) g/dL RDW 19.7 H (11.5-15.5) % Neutrophils # (Manual) (1.3-7.7) k/uL Metamyelocytes # (Man) (0) k/uL PT (9.0-12.0) sec INR (<1.2) ABG pH (7.35-7.45) ABG pCO2 (35-45) mmHg ABG pO2 (83-108) mmHg ABG HCO3 (21-25) mmol/L ABG Total CO2 (19-24) mmol/L ABG O2 Saturation (94-97) % Sodium (137-145) mmol/L Chloride (98-107) mmol/L Carbon Dioxide (22-30) mmol/L BUN (7-17) mg/dL Creatinine (0.52-1.04) mg/dL Glucose (74-99) mg/dL POC Glucose (mg/dL) 252 H (75-99) mg/dL Plasma Lactic Acid Livan 4.9 H* (0.7-2.0) mmol/L Calcium (8.4-10.2) mg/dL Ionized Calcium Gucci (4.5-5.3) mg/dL Phosphorus (2.5-4.5) mg/dL AST (14-36) U/L ALT (4-34) U/L Total Protein (6.3-8.2) g/dL Albumin (3.5-5.0) g/dL Urine Appearance (Clear) Urine Protein (Negative) Urine Glucose (UA) (Negative) Urine Ketones (Negative) Urine WBC (0-5) /hpf Urine Bacteria (None) /hpf Hyaline Casts (0-2) /lpf Urine Mucus (None) /hpf 03/10/20 03/11/20 03/11/20 Range/Units 21:45 00:15 04:15 WBC (3.8-10.6) k/uL RBC (3.80-5.40) m/uL MCV (80.0-100.0) fL MCH (25.0-35.0) pg MCHC (31.0-37.0) g/dL RDW (11.5-15.5) % Neutrophils # (Manual) (1.3-7.7) k/uL Metamyelocytes # (Man) (0) k/uL PT (9.0-12.0) sec INR (<1.2) ABG pH (7.35-7.45) ABG pCO2 (35-45) mmHg ABG pO2 (83-108) mmHg ABG HCO3 (21-25) mmol/L ABG Total CO2 (19-24) mmol/L ABG O2 Saturation (94-97) % Sodium 130 L 132 L (137-145) mmol/L Chloride 110 H 113 H (98-107) mmol/L Carbon Dioxide 15 L 9 L* (22-30) mmol/L BUN 32 H 30 H (7-17) mg/dL Creatinine 1.13 H (0.52-1.04) mg/dL Glucose 214 H 137 H (74-99) mg/dL POC Glucose (mg/dL) 222 H (75-99) mg/dL Plasma Lactic Acid Livan (0.7-2.0) mmol/L Calcium 6.6 L 6.3 L* (8.4-10.2) mg/dL Ionized Calcium Gucci 4.3 L (4.5-5.3) mg/dL Phosphorus 4.7 H (2.5-4.5) mg/dL AST 44 H (14-36) U/L ALT 45 H (4-34) U/L Total Protein 3.1 L (6.3-8.2) g/dL Albumin 1.5 L (3.5-5.0) g/dL Urine Appearance (Clear) Urine Protein (Negative) Urine Glucose (UA) (Negative) Urine Ketones (Negative) Urine WBC (0-5) /hpf Urine Bacteria (None) /hpf Hyaline Casts (0-2) /lpf Urine Mucus (None) /hpf 03/11/20 03/11/20 03/11/20 Range/Units 04:15 04:15 04:41 WBC 20.1 H (3.8-10.6) k/uL RBC 6.11 H (3.80-5.40) m/uL MCV 70.7 L (80.0-100.0) fL MCH 20.1 L (25.0-35.0) pg MCHC 28.4 L (31.0-37.0) g/dL RDW 19.7 H (11.5-15.5) % Neutrophils # (Manual) 15.60 H (1.3-7.7) k/uL Metamyelocytes # (Man) 0.20 H (0) k/uL PT (9.0-12.0) sec INR (<1.2) ABG pH 7.26 L (7.35-7.45) ABG pCO2 21 L (35-45) mmHg ABG pO2 171 H (83-108) mmHg ABG HCO3 9 L* (21-25) mmol/L ABG Total CO2 10 L (19-24) mmol/L ABG O2 Saturation 98.9 H (94-97) % Sodium (137-145) mmol/L Chloride (98-107) mmol/L Carbon Dioxide (22-30) mmol/L BUN (7-17) mg/dL Creatinine (0.52-1.04) mg/dL Glucose (74-99) mg/dL POC Glucose (mg/dL) (75-99) mg/dL Plasma Lactic Acid Livan 7.6 H* (0.7-2.0) mmol/L Calcium (8.4-10.2) mg/dL Ionized Calcium Gucci (4.5-5.3) mg/dL Phosphorus (2.5-4.5) mg/dL AST (14-36) U/L ALT (4-34) U/L Total Protein (6.3-8.2) g/dL Albumin (3.5-5.0) g/dL Urine Appearance (Clear) Urine Protein (Negative) Urine Glucose (UA) (Negative) Urine Ketones (Negative) Urine WBC (0-5) /hpf Urine Bacteria (None) /hpf Hyaline Casts (0-2) /lpf Urine Mucus (None) /hpf 03/11/20 03/11/20 03/11/20 Range/Units 06:41 09:20 12:45 WBC (3.8-10.6) k/uL RBC (3.80-5.40) m/uL MCV (80.0-100.0) fL MCH (25.0-35.0) pg MCHC (31.0-37.0) g/dL RDW (11.5-15.5) % Neutrophils # (Manual) (1.3-7.7) k/uL Metamyelocytes # (Man) (0) k/uL PT (9.0-12.0) sec INR (<1.2) ABG pH (7.35-7.45) ABG pCO2 (35-45) mmHg ABG pO2 (83-108) mmHg ABG HCO3 (21-25) mmol/L ABG Total CO2 (19-24) mmol/L ABG O2 Saturation (94-97) % Sodium (137-145) mmol/L Chloride (98-107) mmol/L Carbon Dioxide (22-30) mmol/L BUN (7-17) mg/dL Creatinine (0.52-1.04) mg/dL Glucose (74-99) mg/dL POC Glucose (mg/dL) 131 H 67 L (75-99) mg/dL Plasma Lactic Acid Livan 11.7 H* (0.7-2.0) mmol/L Calcium (8.4-10.2) mg/dL Ionized Calcium Gucci (4.5-5.3) mg/dL Phosphorus (2.5-4.5) mg/dL AST (14-36) U/L ALT (4-34) U/L Total Protein (6.3-8.2) g/dL Albumin (3.5-5.0) g/dL Urine Appearance (Clear) Urine Protein (Negative) Urine Glucose (UA) (Negative) Urine Ketones (Negative) Urine WBC (0-5) /hpf Urine Bacteria (None) /hpf Hyaline Casts (0-2) /lpf Urine Mucus (None) /hpf 03/11/20 Range/Units 12:48 WBC (3.8-10.6) k/uL RBC (3.80-5.40) m/uL MCV (80.0-100.0) fL MCH (25.0-35.0) pg MCHC (31.0-37.0) g/dL RDW (11.5-15.5) % Neutrophils # (Manual) (1.3-7.7) k/uL Metamyelocytes # (Man) (0) k/uL PT (9.0-12.0) sec INR (<1.2) ABG pH (7.35-7.45) ABG pCO2 (35-45) mmHg ABG pO2 (83-108) mmHg ABG HCO3 (21-25) mmol/L ABG Total CO2 (19-24) mmol/L ABG O2 Saturation (94-97) % Sodium (137-145) mmol/L Chloride (98-107) mmol/L Carbon Dioxide (22-30) mmol/L BUN (7-17) mg/dL Creatinine (0.52-1.04) mg/dL Glucose (74-99) mg/dL POC Glucose (mg/dL) 119 H (75-99) mg/dL Plasma Lactic Acid Livan (0.7-2.0) mmol/L Calcium (8.4-10.2) mg/dL Ionized Calcium Gucci (4.5-5.3) mg/dL Phosphorus (2.5-4.5) mg/dL AST (14-36) U/L ALT (4-34) U/L Total Protein (6.3-8.2) g/dL Albumin (3.5-5.0) g/dL Urine Appearance (Clear) Urine Protein (Negative) Urine Glucose (UA) (Negative) Urine Ketones (Negative) Urine WBC (0-5) /hpf Urine Bacteria (None) /hpf Hyaline Casts (0-2) /lpf Urine Mucus (None) /hpf Microbiology - Last 24 Hours (Table) 03/10/20 11:00 Blood Culture - Preliminary Blood No Growth after 24 hours 03/10/20 10:50 Blood Culture - Preliminary Blood No Growth after 24 hours Assessment and Plan Assessment: Severe small bowel obstruction Metabolic encephalopathy secondary to above Severe hypotension and dehydration 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 Continue with antibiotic. Continue with IV fluid. Labs and medication were reviewed.. Continue same treatment. Continue with symptomatic treatment. Resume home medication. Monitor lytes and vitals. DVT and GI prophylaxis. Further recommendationsas per clinical course of the patient
--- NOTE | 2020-03-14 21:05 | P.DS ---
Providers Date of admission: 03/09/20 20:59 Expected date of discharge: 03/11/20 Attending physician: Shari Young Consults: 03/10/20 08:37 Consult Physician Stat Consulting Provider: Trell Garcia Consult Reason/Comments: ICU management Do you want consulting provider notified?: Already Contacted 03/10/20 08:42 Consult Physician Stat Consulting Provider: Carlos Alberto Germain Consult Reason/Comments: Abdominal pain and distention Do you want consulting provider notified?: Yes Primary care physician: Stated None Hospital Course: 79-year-old female patient with a history of Parkinson's disease and osteoarthritis. She is currently on no known home medications. He was brought into the emergency room yesterday by EMS with altered mental status. She is a poor historian and not much history could be taken from the patient. EMS reported on An unfit living conditions. She was having complaints of abdominal pain. Abdominal x-ray did reveal dilated small bowel suggestive of severe ileus or distal mechanical small bowel obstruction. Chest x-ray revealed no acute pulmonary process. EKG revealed sinus tachycardia with no significant ST or T wave abnormalities. White count 16.0. Hemoglobin 11.3. Sodium 147. Potassium 4.0. Chloride 114. Bicarb 21. Creatinine 0.96. Urine drug screen negative. Ammonia level 45. She was given 4 L of fluid resuscitation in the emergency room along with 1 g of IV Rocephin. She was admitted to the regular medical floor. This morning and A team was called as the patient was quite obtunded, hypotensive and tachycardic. She was transferred to the intensive care unit and seen upon arrival. She is moaning in pain. Abdomen is significantly distended and tender. Blood pressure 80/56. Tachycardic at 120. Requiring 6 L high flow nasal cannula to maintain O2 saturations in the 90s. Her blood gases revealed a PaO2 of 170, pCO2 24, pH 7.49. On 100% FiO2. She is receiving another liter of normal saline. This is changed to D5W. Patient underwent Exploratory laparotomy with right colectomy, end ileostomy for small bowel obstruction and bowel perforation with peritonitis,; patient deteriorated postoperatively; condition was d/w family who agreed to make patient comfort care; patient on 03/11/20 Patient Condition at Discharge: Fair Plan - Discharge Summary New Discharge Prescriptions: No Action No Known Home Medications Discharge Medication List No Known Home Medications 03/09/20 [History] Follow up Appointment(s)/Referral(s): None,Stated [Primary Care Provider] - 1-2 days Discharge Disposition: - Preliminary Cause of Preliminary Cause of : bowel perforation w/ peritonitis and sepsis
--- NOTE | 2020-03-17 09:05 | CDI ---
Documentation Clarification Form Date: 03/17/20 From: Ana Biswas Phone: If you have a question about this query, please contact Ilene Alonzo, Straightener And Aligner at [phone] between 8am and 5pm. Admit Date: 03/09/20 Discharge Date: 03/11/20 Patient Name: MARK GILES Visit Number: [id number] ATTENTION: The Clinical Documentation Specialists (CDI) and [facility] Coding Staff appreciate your assistance in clarifying documentation. Please respond to the clarification below the line at the bottom and electronically sign. The CDI & [facility] Coding staff will review the response and follow-up if needed. Please note: Queries are made part of the Legal Health Record. If you have any questions, please contact the author of this message via ITS. Dear Dr. 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 Documentation states: Small bowel obstruction secondary to cecal mass with perforation. 03/11 PN states likely consistnet with cancer. Patient history/risk factors: sepsis w septic shock, acute respiratory failure w hypoxia, metabolic encephalopathy, perforation w peritonitis, severe PCM, cachexia, BMI 15.4, hypernatremia, Clinical Indicators: bowel obstruction w cecal mass Treatment: Exploratory laparotomy with right colectomy, end ileostomy, mucous fistula In your professional opinion, do you agree with the pathology report specifying adenocarcinoma of right colon with mets to 12 pericolic lymph nodes? Yes No Other (please specify) Unable to determine yes MTDD
== END 2020-03-11 16:14 | disposition expired | DRG 853 ==
LOC: EC 16:19 → 4SSUR 20:59 → 2SICU 03-10 08:29
PROVIDERS: ADMIT Hospitalist; ATTEND Hospitalist
PROC: 0DTF0ZZ Resection of Right Large Intestine, Open Approach (ICD-10-PCS; principal; 2020-03-10 08:15)
PROC: 0D1B0Z4 Bypass Ileum to Cutaneous, Open Approach (ICD-10-PCS; principal; 2020-03-10 08:15)
PROC: 05HF33Z Insertion of Infusion Device into Left Cephalic Vein, Percutaneous Approach (ICD-10-PCS; 2020-03-10 12:20)
PROC: 02HV33Z Insertion of Infusion Device into Superior Vena Cava, Percutaneous Approach (ICD-10-PCS; 2020-03-10 12:20)
PROC: 0D9670Z Drainage of Stomach with Drainage Device, Via Natural or Artificial Opening (ICD-10-PCS; 2020-03-10 12:20)
PROC: 4A133J1 Monitoring of Arterial Pulse, Peripheral, Percutaneous Approach (ICD-10-PCS; 2020-03-10 12:20)
PROC: 5A1935Z Respiratory Ventilation, Less than 24 Consecutive Hours (ICD-10-PCS; 2020-03-10 12:20)
PROC: 03HY32Z Insertion of Monitoring Device into Upper Artery, Percutaneous Approach (ICD-10-PCS; 2020-03-10 12:20)
PROC: 4A133B1 Monitoring of Arterial Pressure, Peripheral, Percutaneous Approach (ICD-10-PCS; 2020-03-10 12:20)
PROC: 3E043XZ Introduction of Vasopressor into Central Vein, Percutaneous Approach (ICD-10-PCS; 2020-03-10 12:20)
DX: A41.9 Sepsis, unspecified organism (principal); R65.21 Severe sepsis with septic shock; J96.01 Acute respiratory failure with hypoxia; K63.1 Perforation of intestine (nontraumatic); G93.41 Metabolic encephalopathy; K65.9 Peritonitis, unspecified; E43 Unspecified severe protein-calorie malnutrition; R64 Cachexia; E87.2 Acidosis; E87.0 Hyperosmolality and hypernatremia; Z68.1 Body mass index [BMI] 19.9 or less, adult; C77.2 Secondary and unspecified malignant neoplasm of intra-abdominal lymph nodes; C18.2 Malignant neoplasm of ascending colon; G20 Parkinson's disease; Z66 Do not resuscitate; Z51.5 Encounter for palliative care; E86.0 Dehydration; F41.9 Anxiety disorder, unspecified; M19.90 Unspecified osteoarthritis, unspecified site; Z79.82 Long term (current) use of aspirin; Z79.899 Other long term (current) drug therapy; Z88.0 Allergy status to penicillin; Z82.49 Family history of ischemic heart disease and other diseases of the circulatory system; Z81.1 Family history of alcohol abuse and dependence; Z82.0 Family history of epilepsy and other diseases of the nervous system
CPT/HCPCS: 36410; 36415; 36600; 51701; 71045; 74022; 74176; 76937; 80048; 80053; 80164; 80306; 80320; 80329; 81001; 82140; 82330; 82805; 83520; 83605; 83735; 84100; 84132; 84443; 85025; 85027; 85610; 85730; 86850; 86900; 86901; 87040; 88309; 93005; 94002; 94003; 96361; 96374; 99285